=== PATIENT | male | born 1950 | race Caucasian/White ===

== ENCOUNTER 2024-03-26 07:31 | Outpatient (CLI) | payer MEDICARE, SELFPAY ==
--- OUTSIDE RECORDS SUMMARY | 2024-03-26 07:35 | XMS_ITS | Clinical Summary ---
Author Organization [employer] [facility] Address [place], [place] [address] Care Team Providers Care Record Keeper Name Role Phone Lang Almazan MD Unavailable Vlad Salazar MD Unavailable Ford Ahuja MD Unavailable Robbie Jackson OD Unavailable Kylee Cheatham Unavailable Jazmyn Hay SHERIFFS Unavailable [phone] Anitha Harmon MD Unavailable Surya Marquis MD Unavailable Mikey White MD Primary Care Provider [phone] Landy Kraus RN Unavailable Unavailable Nikhil Chaparro MD Unavailable Allergies Active Allergy Reactions Criticality Noted Date Comments Dust Mites Other - Describe In Comment Field Medium 07/19/2010 Running nose Chlorpheniramine-Phenylpr opan Other - Describe In Comment Field Medium 07/19/2010 Running nose Mold Extracts Shortness Of Breath High 07/19/2010 Penicillins Rash 01/09/2006 Medications Medication Sig Dispensed Refills Start Date End Date Status MULTIPLE VITAMIN TAB 1 tab daily ? 0 5 Active NebulizersIndicatio ns:Unspecified asthma(493.90) As directed. For home use. Length of need: 99 months. Diagnosis Asthma 1 Kit 0 2 Active Cholecalciferol, Vitamin D3, (VITAMIN D-3) 2,000 unit tablet Take 1 tablet by mouth once daily. 0 3 Active Inhalational Spacing DeviceIndications:M oderate persistent asthma without complication For home use. 1 Device 7 Active glucosamine-chondro itin, 500-400 mg, (COSAMIN DS 500/400) 500-400 mg cap 1 capsule twice a day 0 8 Active vitamin e 400 unit capsule Take 1 capsule by mouth once daily. 0 8 Active lactobacillus combination no.4 (PROBIOTIC) 3 billion cell cap Take by mouth. 0 8 Active acetaminophen SR (TYLENOL ARTHRITIS) 650 mg Extended-Release tablet Max acetaminophen dose: 4000mg in 24 hrs. 2 tablets BID arthritis 0 9 Active nebulizer accessories kitIndications:Mode rate persistent asthma without complication For home use. Length of need: 99 mo 1 Kit 6 0 Active miscellaneous medical supply (BLOOD PRESSURE CUFF) miscIndications:Ess ential hypertension As directed. Blood pressure cuff, for home monitoring, diagnosis of Essential Hypertension. Electronic upper arm cuff. 1 Each 0 Active tolterodine (DETROL LA) 2 mg Extended-Release capsuleIndications: Urinary frequency Take 1 Capsule (2 mg) by mouth once daily. 90 Capsule 3 1 Active Mucus Clearing Device deviIndications:Liliana st congestion As directed. 1 Device 1 Active tamsulosin (FLOMAX) 0.4 mg capsuleIndications: Benign non-nodular prostatic hyperplasia with lower urinary tract symptoms TAKE 1 CAPSULE(0.4 MG) BY MOUTH EVERY DAY AFTER A MEAL 90 Capsule 3 Active CPAPIndications:Obs tructive sleep apnea CPAP machine for home use at pressure 10-15 cmw, Heated Tubing, Nasal Mask, Disposable Filter, Chin Strap, Nasal Mask Cushion, Headgear, Humidifier chamber, Non-disposable Filter. Pap setting 10-15 cmw. 1 Each 11 3 Active amLODIPine (NORVASC) 10 mg tabletIndications:E ssential hypertension Take 1 Tablet (10 mg) by mouth once daily. 90 Tablet 3 3 Active atorvastatin (LIPITOR) 20 mg tabletIndications:M ixed hyperlipidemia Take 1 Tablet (20 mg) by mouth once daily. For cholesterol 90 Tablet 3 3 Active albuterol HFA (PRO-AIR; VENTOLIN; PROVENTIL) 90 mcg/actuation inhalerIndications: Moderate persistent asthma without complication INHALE 2 PUFFS BY MOUTH EVERY 4 HOURS NEEDED FOR SHORTNESS OF BREATH 18 g 1 3 Active ipratropium (ATROVENT) 0.02 % nebulizer solutionIndications :Moderate persistent asthma without complication INHALE 2.5 MLS VIA NEBULIZER FOUR TIMES DAILY, NEEDED FOR SHORTNESS OF BREATH 75 mL 1 3 Active apixaban (Eliquis) 5 mg tabletIndications:A trial fibrillation, unspecified type (HC) Take 1 Tablet (5 mg) by mouth two times daily. 180 Tablet 3 4 Active metoprolol succinate (TOPROL XL) 25 mg Sustained-Release tabletIndications:A trial fibrillation, unspecified type (HC) Take 1 Tablet (25 mg) by mouth once daily. 90 Tablet 3 4 Active albuterol 0.042% (1.25 mg/3 mL) neb solutionIndications :Moderate persistent asthma without complication Inhale 3 mL (1.25 mg) via a nebulizer every 4 hours if needed (Shortness of Breath). 90 mL 2 4 Active ezetimibe (ZETIA) 10 mg tabletIndications:M ixed hyperlipidemia Take 1 Tablet (10 mg) by mouth once daily. For Cholesterol. 90 Tablet 3 4 Active fluticasone propion-salmeteroL (Advair Diskus) 250-50 mcg/Dose diskus inhalerIndications: Moderate persistent asthma without complication Inhale 1 Puff by mouth two times daily. 180 Each 3 4 Active fosinopril sodium (MONOPRIL) 40 mg tabletIndications:E ssential hypertension Take 1 Tablet (40 mg) by mouth once daily. For blood pressure. 90 Tablet 3 4 Active montelukast (SINGULAIR) 10 mg tabletIndications:M oderate persistent asthma without complication Take 1 Tablet (10 mg) by mouth once daily. 90 Tablet 3 4 Active pantoprazole (PROTONIX) 40 mg delayed-release tabletIndications:G astroesophageal reflux disease with esophagitis without hemorrhage TAKE 1 TABLET BY MOUTH EVERY OTHER DAY 45 Tablet 3 4 Active polyethylene glycol-electrolyte (GOLYTELY) 236-22.74-6.74 -5.86 gram suspensionIndicatio ns:Polyp of colon, unspecified part of colon, unspecified type Drink 2 liters the day before colonoscopy and 2 liters 6 hours before colonoscopy appointment 4000 mL 4 Active mirabegron EXTENDED-release (MYRBETRIQ) 25 mg tablet Take 1 Tablet by mouth once daily. 4 Active CPAPIndications:Obs tructive sleep apnea CPAP (E0601) machine for home use at pressure: 12-15 , Choice of mask (A7030 or A7034) w/full face cushion (A7031) x1/mo, nasal cushion (A7032) x2/mo, or nasal pillows (A7033) x 2/mo; Length of Need: 99 months; Frequency of use: Daily 1 Each 11 4 Active albuterol (PROVENTIL; VENTOLIN) 0.042% neb solutionIndications :Moderate persistent asthma without complication Inhale 3 mL (1.25 mg) via a nebulizer every 4 hours if needed (Shortness of Breath). 90 mL 2 2 03/13/20 24 Discontinu ed(Reorder (E-cancel not sent)) fluticasone propion-salmeteroL (Advair Diskus) 250-50 mcg/Dose diskus inhalerIndications: Moderate persistent asthma without complication Inhale 1 Puff by mouth two times daily. 180 Each 3 3 03/13/20 24 Discontinu ed(Reorder (E-cancel not sent)) fosinopril sodium (MONOPRIL) 40 mg tabletIndications:E ssential hypertension Take 1 Tablet (40 mg) by mouth once daily. For blood pressure. 90 Tablet 3 3 03/13/20 24 Discontinu ed(Reorder (E-cancel not sent)) pantoprazole (PROTONIX) 40 mg delayed-release tabletIndications:G astroesophageal reflux disease with esophagitis without hemorrhage TAKE 1 TABLET BY MOUTH EVERY OTHER DAY 90 Tablet 3 3 03/13/20 24 Discontinu ed(Reorder (E-cancel not sent)) ezetimibe (ZETIA) 10 mg tabletIndications:M ixed hyperlipidemia Take 1 Tablet (10 mg) by mouth once daily. For Cholesterol. 90 Tablet 3 3 03/13/20 24 Discontinu ed(Reorder (E-cancel not sent)) montelukast (SINGULAIR) 10 mg tabletIndications:M oderate persistent asthma without complication Take 1 Tablet (10 mg) by mouth once daily. 90 Tablet 3 3 03/13/20 24 Discontinu ed(Reorder (E-cancel not sent)) Active Problems Problem Noted Date Diagnosed Date Sensorineural hearing loss (SNHL) of both ears 0 04/25/2022 Elevated fasting glucose 08/06/2021 Overview: Jul 2021: Fasting 111. Hemoglobin A1c 5.4. April 2023: Fasting glucose 111, Hemoglobin A1c 5.7. Paroxysmal atrial fibrillation 04/05/2020 Overview: New diagnosis Dec 2019 when in [place], found on [employer]. Started on Flecainide, Metoprolol and eliquis in [place]. [place] [employer] Dr. Cheatham did holter monitor and echocardiogram March 2020. s/p PVI 04/26/[address] Marquis, acutely successful Renal cyst, congenital, left 01/27/2019 ASHD (arteriosclerotic heart disease) 06/27/2018 Left renal mass 02/18/2018 Overview: August 2020: Urology appointment Dr. Eason . 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 Referred to [facility] for consult. Dr. Ahuja recommended repeat colonoscopy 2021. Colonoscopy 07/2022 multiple polyps, repeat in 2 years, PEG 8L Nodular prostate without urinary obstruction Overview: Seen by urology. Had biopsies, all were negative for maligancy August 2020: Elevated PSA 4.94. Dr. Jin recommended repeat PSA February 2021. Plantar fascial fibromatosis 03/18/2008 Moderate persistent asthma without complication 07/17/2007 Overview: Diagnosis asthma as an adult. Asthma action plan updated 10/04/2012 Bronchitis in [place] Oct 2018 to Nov 2018, placed on azithromycin. Nonspecific elevation of lev els of transaminase or lactic acid dehydrogenase (LDH) 08/09/2006 Fatty liver 08/09/2006 Anxiety 10/25/2004 Tinnitus 12/18/2002 ESOPHAGUS - REFLUX 06/20/2001 Umbilical hernia without obstruction and without gangrene 08/30/2000 HYPERLIPIDEMIA 08/30/2000 Premature beats 08/30/2000 Primary hypertension 05/16/2000 Resolved Problems Problem Noted Date Diagnosed Date Resolved Date Atrial flutter 04/26/2021 04/26/2021 Diastolic heart failure 04/06/2020 05/2 05/2022 Thoracic aortic ectasia 04/06/2020 06/0 03/2023 Severe obesity (BMI 35.0-39.9) 06/15/2017 04/09/2023 Obstructive sleep apnea 02/16/201405/06 Overview: HEMA 05/2008, AHI- 13 Chest pain, unspecified 03/28/201101/03 Obesity, unspecified 03/18/2008 017 Overview: i Routine general medical exam ination at a health care facility 03/14/2006 05/29/2006 Overview: last colonoscopy- 2003 SLEEP APNEA - UNSPECIFIED 04/22/2002 Overview: CPAP TRIGGER FINGER 11/18/2001 09/24/2015 Encounters Date Type Department Care Team Description 03/25/2024 9:00 AM CDT Telemedicine [facility] [address] [place] [address] Jeaneth Shultz, SHERIFFS Sleep Follow-up; Telehealth 03/24/2024 2:45 PM CDT Ancillary Procedure [facility] [address] [place] [address] Arrived 03/24/2024 Orders Only [facility] [address] [place] [address] Mikey White MD Outside Order 03/24/2024 Travel 03/22/2024 Travel 03/19/2024 9:30 AM CDT Patient Out[place] [facility] [address] [place] [address] [employer] Gates Rn Suite Focused Care Management (HTN, Obesity) 03/19/2024 Travel 03/18/2024 Transcribe Orders [facility] [address] [place] [address] Nikhil Chaparro MD 03/13/2024 1:30 PM CDT Office Visit [facility] [address] [place] [address] Wilma Yin MD Derm Problem 03/13/2024 8:15 AM CDT Office Visit [facility] [address] [place] [address] Mikey White MD Medication Management (Follow-up Medications and review Biopsy results from 08/22/2023 (shave biopsy from back)); Immunization/Injec tion; Immunization/Injec tion (COVID-19 vaccine) 03/13/2024 8:00 AM CDT Orders Only [facility] [address] [place] [address] Lab, [place] Outside Order (Ordered by Nikhil Chaparro) 03/13/2024 Telephone [facility] [address] [place] [address] Ford Ahuja MD Pre Procedure 03/13/2024 Travel 03/10/2024 8:30 AM CDT Office Visit [facility] [address] [place] [address] Nikki Abraham AuD Hearing Aid (ROJAS check) 03/10/2024 Travel 03/05/2024 10:00 AM CDT Office Visit [facility] [address] [place] [phone] Kylee Cheatham MBBS Follow Up (Annual ) 03/05/2024 Travel from Last 3 Months Immunizations Name Administration Dates Next Due AMB Influenza, IIV3 (Age >=3 years) Preserve Free (Flu Clinic Only) 09/02/2013 COVID-19 Vaccine Spikevax (M oderna 50mcg/0.5mL) 12YO+ [id number] Formula PF 03/13/2024,08/22/2023 COVID-19 vaccine (Moderna 100mcg/0.5mL) PF, MDV 08/26/2021,01/28/2021,12/31/2020 COVID-19 vaccine (Moderna 50 mcg/0.5mL) 12YO+ BIVALENT PF, MDV 08/10/2022 COVID-19 vaccine (Moderna Romero ginette 50mcg/0.25mL) PF, MDV 03/14/2022 Covid-19 Vaccine (Unspecified) 08/10/2022 DTaP 04/10/2006 Hepatitis A (Adult) 10/15/2009,03/24/2009 Influenza Virus, Unspecified 08/10/2022 Influenza, High-dose Inactivated 07/28/2016,05/2015,09/08/2014 Influenza, IIV3 (Age >=3 years) 09/14/2012,08/28 Influenza, Inactivated AIIV4 (Age 65+ Years) Preserv Free 08/13/2023,08/10/2022,07/18/2021,07/14 Influenza, Inactivated IIV3 (Age 65+ Years) Preserv Free 08/08/2019,08/15/2018,08/10/2017 Pneumococcal Poly,23-Valent (Pneumovax) 01/21/2013,11/05/2000 Pneumococcal conj 13-Valent (Prevnar 13) 03/17/2015,11/05/2000 RSV, Bivalent Vaccine Recons tituted (Abrysvo 120MCG/0.5mL) 07/31/2023 Tdap 03/27/2014 Zoster (Shingrix-RZV, recombinant) 07/05/2019, Zoster (Zostavax-ZVL, live) 03/24/2009 Family History Medical History Relation Name Comments Hypertension Brother Stroke Brother Atrial fibrillation Father Cancer-prostate Father Diabetes Father Stroke Father Heart Disease Maternal Grandfather Heart Disease Mother Hypertension Mother Other Mother cardiomyopathy Genetic Other heart disease-b oth sets of grandparents, mother/heart disease-both sets of grandparents, mother ~No family hx of anesthetic complications, bleeding disorders or family or personal hx of malignant hyperthermia. Heart Disease Paternal Grandfather Heart Disease Sister 1 cardiomyopathy Cancer-ovarian Sister 2 Cancer-breast Sister 3 Relation Name Status Comments Brother Father Alive Maternal Grandfather Maternal Grandmother Mother Other Paternal Grandfather Paternal Grandmother Sister 1 Sister 2 Sister 3 Social History Tobacco Use Types Packs/Day Years Used Date Smoking Tobacco: Never Smokeless Tobacco: Never Tobacco Cessation:Counseling Given: Yes Alcohol Use Standard Drinks/Week Comments No 0 (1 standard drink = 0.6 oz pur e alcohol) PHQ-2 Answer Date Recorded PHQ-2 TOTAL SCORE 0 08/13/2023 Social Connections Answer Date Recorded Frequency of Communication with Friends and Fami ly 0 08/22/2023 Financial Resource Strain Answer Date R ecorded Difficulty of Paying Living Expenses 3 08/22/2023 Difficulty of Paying Living Expenses Not on file 08/22/2023 Food Insecurity Answer Date Recorded Worried About Running Out of Food in the Last Ye ar 1 08/22/2023 Transportation Needs Answer Date Record ed Lack of Transportation (Medical) 1 08/22/2023 Housing Stability Answer Date Recorded Unable to Pay for Housing in the Last Year 1 08/22/2023 Sex and Gender Information Value Date Recorded Sex Assigned at Not on file Gender Identity Not on file Sexual Orientation Not on file Obstetrics History Last Filed Vital Signs Vital Sign Reading Time Taken Comments Blood Pressure 127/72 03/13/2024 8:23 AM CDT Pulse 70 03/13/2024 8:23 AM CDT Temperature 36.4 ??C (97.6 ??F) 08/13/2023 7:55 AM CD T Respiratory Rate 18 07/23/2023 9:16 AM CDT Oxygen Saturation 96% 03/13/2024 8:23 AM CDT Inhaled Oxygen Concentration - - Weight 116.7 kg (257 lb 4.8 oz) 03/19/2024 9:40 AM CDT Height 179.8 cm (5' 10.79) 08/13/2023 7:55 AM C DT Body Mass Index 36.1 08/13/2023 7:55 AM CDT Plan of Treatment Upcoming Encounters Date Type Department Care Team (Late st Contact Info) Description 04/14/2024 1:30 PM CDT Appointment [facility] [address], [address] [address] 04/23/2024 9:30 AM CDT Patient Outreach [facility] [address] [place] [address] [address]n [address] 04/30/2024 10:15 AM CDT Office Visit [facility] [address] [place] [address] Juan Ramon Saxena DPM [address] [place] [address] 07/31/2024 7:30 AM CDT Office Visit [facility] [address] [place] [address] Ford Ahuja MD [address] [place] [address] 08/05/2024 9:00 AM CDT Office Visit [facility] [address] [place] [address] Artis Urrutia, AuD [address] [facility] [place] [address] 08/11/2024 7:00 AM CDT Office Visit [facility] [address] [place] [address] Mikey White MD [address] [place] [address] Health Maintenance Due Date Last Done Comments Tetanus booster 03/27/2024 03/27/2014, 03/06 (Completed outside of [facility]) Influenza for age 65+ 07/06/2024 08/13/2023 , 08/10/2022, 08/10/2022, Additional history exists BMI (ht and wt on same day) for age 18+ 08/13/2024 08/13/2023, 04/09/2023, 03/26/2023, Additional history exists Medicare Wellness for age 65+ 08/13/2024, 08/10/2022, 08/04/2021, Additional history exists Depression screening for age 12+ 08/16/2024 08/16/2023, 08/13/2023, 08/11/2023, Additional history exists Hepatitis C screening for ag e 18-79 Completed 04/05/2006, 07/31/2002 Tdap Completed 03/27/2014 Pneumococcal series for age 65+ Completed 03/17/2015, 01/21/2013, 11/05/2000, Additional history exists Zoster (shingles) series for age 50+ Completed 07/05/2019, 05/06/2019, 03/24/2009 COVID-19 vaccine series Completed 03/13/20 24, 08/22/2023, 08/10/2022, Additional history exists Procedures Procedure Name Priority Date/Time Associated Diagnosis Comments US RENAL AND BLADDER COMPLETE Routine 03/24/2024 2:56 PM CDT Abnormal radiologic findings on diagnostic imaging of renal pelvis, ureter, or bladder LIPID PANEL W REFLEX MEASURED LDL Routine 03/13/2024 9:44 AM CDT HYPERLIPIDEMIA BASIC METABOLIC PANEL Routine 03/13/2024 9:44 AM CDT Essential hypertension HEMOGLOBIN A1C SCREENING Routine 03/13/2024 9:44 AM CDT Screening for diabetes mellitus PSA TOTAL (DIAGNOSTIC) Routine 03/13/2024 7:50 AM CDT Elevated prostate specific antigen (PSA) ANTI HCV Routine 04/05/2006 3:49 PM CDT Elevated Levels Of Transaminase Or Ldh from Last 3 Months or Most Recently Relevant to Health Maintenance Results * US RENAL AND BLADDER COMPLETE (03/24/2024 2:56 PM CDT) Anatomical Region Laterality Modality Abdomen, AORTA, KIDNEYS Ultrasou nd 03/24/2024 2:56 PM CDT Impressions 03/24/2024 3:25 PM CDT 1. ??Large left renal cysts, grossly stable when compared with comparison imaging Narrative 03/24/2024 3:25 PM CDT For Patients: As a result of the Century Cures Act, medical imaging exams and procedure reports are released immediately into your electronic medical record. You may view this report before your referring provider. If you have questions, please contact your health care provider. EXAM: US RENAL AND BLADDER COMPLETE LOCATION: [facility] DATE: 03/24/2024 INDICATION: Abnormal Radiologic Findings On Diagnostic Imaging Of Renal Pelvis, Ureter, Or Bladder COMPARISON: 03/07/2018, 02/21/2018 TECHNIQUE: Routine Bilateral Renal and Bladder Ultrasound. FINDINGS: RIGHT KIDNEY: 11.7 x 6.1 x 5.8 cm. Normal without hydronephrosis or masses. LEFT KIDNEY: 14.1 x 9.6 x 9.6 cm. Normal without hydronephrosis or masses. Large cysts are noted the largest of which measures up to 10.8 x 9.7 x 5.5 cm. BLADDER: Normal. Procedure Note Armando Fernández MD - 03/24/2024 For Patients: As a result of the Cures Act, medical imagingexams and procedure reports are released immediately into your electronicmedical record. You may view this report before your referring provider.If you have questions, please contact your health care provider. EXAM: US RENAL AND BLADDER COMPLETE LOCATION: [facility] DATE: 03/24/2024 INDICATION: Abnormal Radiologic Findings On Diagnostic Imaging Of RenalPelvis, Ureter, Or Bladder COMPARISON: 03/07/2018, 02/21/2018 TECHNIQUE: Routine Bilateral Renal and Bladder Ultrasound. FINDINGS: RIGHT KIDNEY: 11.7 x 6.1 x 5.8 cm. Normal without hydronephrosis ormasses. LEFT KIDNEY: 14.1 x 9.6 x 9.6 cm. Normal without hydronephrosis or masses.Large cysts are noted the largest of which measures up to 10.8 x 9.7 x 5.5cm. BLADDER: Normal. IMPRESSION: 1. Large left renal cysts, grossly stable when compared with comparisonimaging Nikhil Chaparro MD US * HEMOGLOBIN A1C SCREENING (03/13/2024 9:44 AM CDT) HEMOGLOBIN A1C SCREENING 5.3 <=6.4 % 03/13/2024 5:19 PM CDT [facility] Blood BLOOD SPECIMEN / Unknown Venipuncture / Unknown 03/13/2024 9:44 AM CDT 03/13/2024 9:46 AM CDT Narrative [facility] - 03/13/2024 5:19 PM CDT ? (<5.7%) ?Normal ? (5.7% to 6.4%) ? Indicates prediabetes ? (>=6.5%) ? Confirms diabetes Falsely low levels may be seen with: Recent Transfusion, Recent Significant Blood Loss, Hemolytic Diseases, or Falsely elevated levels may be seen with: Untreated Anemias, Splenectomy Mikey Whtie MD CHEMISTRY [facility] [address] [place] [id number], * (ABNORMAL) LIPID PANEL W REFLEX MEASURED LDL (03/13/2024 9:44 AM CDT) Pathologist [facility] CHOLESTEROL,TOTAL 140 100 - 199 mg/dL 03/13/2024 4:41 PM CDT [facility] Comment: Cholesterol, Total Reference Ranges Desirable <200 mg/dL Borderline 200-239 mg/dL High >=240 mg/dL TRIGLYCERIDES 126 <150 mg/dL 03/13/2024 4:41 PM CDT [facility] HDL CHOLESTEROL 39(L) >40 mg/dL 4:41 PM CDT [facility] NON-HDL CHOLESTEROL 101 <145 mg/dl 03/13/2024 4:41 PM CDT [facility] CHOL/HDL RATIO 3.59 <4.50 03/13/2024 4:41 PM CDT [facility] LDL CHOLESTEROL 76 <=130 mg/dL 03/13/2024 4:41 PM CDT [facility] VLDL CHOLESTEROL 25 <=30 mg/dL 03/13/2024 4:41 PM CDT [facility] PROVIDER ORDERED STATUS RANDOM 03/13/2024 4:41 PM CDT [facility] Blood BLOOD SPECIMEN / Unknown Venipuncture / Unknown 03/13/2024 9:44 AM CDT 03/13/2024 9:46 AM CDT Mikey White MD CHEMISTRY [facility] [address] [place] [address], * (ABNORMAL) BASIC METABOLIC PANEL (03/13/2024 9:44 AM CDT) SODIUM 143 136 - 145 mmol/L 03/13/2024 4:41 PM CDT [facility] POTASSIUM 4.7 3.5 - 5.1 mmol/L 03/13/2024 4:41 PM T [facility] CHLORIDE 108(H) 98 - 107 mmol/L 03/13/2024 4:41 PM T [facility] CO2,TOTAL 22 22 - 29 mmol/L 03/13/2024 4:41 PM T [facility] ANION GAP 13 5 - 18 03/13/2024 4:41 PM T [facility] GLUCOSE 112(H) 70 - 99 mg/dL 03/13/2024 4:41 PM T [facility] CALCIUM 9.5 8.8 - 10.2 mg/dL 03/13/2024 4:41 PM T [facility] BUN 19 8 - 23 mg/dL 03/13/2024 4:41 PM [facility] CREATININE 0.99 0.70 - 1.20 mg/dL 03/13/2024 4:41 PM [facility] BUN/CREAT RATIO 19 10 - 20 4:41 PM [facility] eGFR 79(L) >90 mL/min/1.7 3m2 03/13/2024 4:41 PM [facility] Comment:As of 2022, eG FR is calculated by the CKD-EPI creatinine equation without race adjustment. ??eGFR can be influenced by muscle mass, exercise, and diet. ??The reported eGFR is an estimation only and is only applicable if the renal function is stable. Blood BLOOD SPECIMEN / Unknown Venipuncture / Unknown 03/13/2024 9:44 AM CDT 03/13/2024 9:46 AM CDT Mikey White MD CHEMISTRY Performing Organization Address City/[facility]/ZIP Co de Phone Number [facility] [address] [place] [address], * (ABNORMAL) PSA TOTAL (DIAGNOSTIC) (03/13/2024 7:50 AM CDT) PSA TOTAL (DIAGNOSTIC) 5.49(H) <4.00 ng/mL 03/13/2024 2:29 PM CDT [facility] Blood BLOOD SPECIMEN / Unknown Venipuncture / Unknown 03/13/2024 7:50 AM CDT 03/13/2024 7:50 AM CDT Narrative [facility] - 03/13/2024 2:29 PM CDT The test method changed on 05/01/2023. If this test has been used for serial monitoring, rebaselining is recommended. Rebaselining consists of 2 measurements, collected 3-6 weeks apart. The Carl Elecsys total PSA assay is an electrochemiluminescence immunoassay ECLIA performed on the Carl Bartolome e immunoassay analyzers. Values obtained with different assay methods may be different and cannot be used interchangeably. Mikey White MD CHEMISTRY Performing Organization Address [facility] Co de Phone Number [facility] [address] [place] [address], * ANTI HCV (04/05/2006 3:49 PM CDT) ANTI HCV Non-reactiv e [facility] Blood specimen (specimen) BLOOD SPECIMEN / Unknown 04/05/2006 3:49 PM CDT 04/05/2006 3:46 PM CDT Narrative [facility] - 04/10/2006 1:42 PM CDT Testing Performed By [place], [place] Ford Ahuja MD SEND OUTS [facility] [address] [place] [address] from Last 3 Months or Most Recently Relevant to Health Maintenance Advance Directives Documents on File Type Date Recorded Patient Mercantile Agent Expl anation Healthcare Directive 10/03/2016 10:27 AM [facility] * Full Code (Latest Code Status on File) Date Activated Date Inactivated Comments 04/26/2021 12:58 PM 04/27/2021 12:28 PM Question Answer Comments Code Status Discussion: Not Discussed * Full Code Date Activated Date Inactivated Comments 05/29/2018 10:14 AM 05/29/2018 3:26 PM Care Teams Record Keeper Relationship Specialty Start Date End Date Mikey White MD [address] [place] [address] PCP - General Family Practice 03/08/23 Lang Almazan MD Sleep Medicine 08/25/11 Vlad Salazar MD [address] [facility] [address] [place] [address] Otolaryngology ENT 08/25/11 Ford Ahuja MD [address] [facility] [address] [place] [address] Gastroenterology 01/21/13 [place] [address] [place] [address] Ophthalmology Surgery 01/21/13 Kylee Cheatham MBBS [address] [place] [address] Consulting Physician Cardiovascular Disease 05/17/18 Jazmyn Hay NP [address] [place] [address] Nurse Practitioner Cardiology - Electrophysiology 04/08/21 Anitha Harmon MD [address] [place] [id number] Cardiology Cardiovascular Disease 06/01/21 Surya Marquis MD [address] [place] [address] Cardiovascular Surgeon Cardiovascular Disease 07/20/21 Landy Kraus, psychometric examiner RN Care Management [facility] 03/16/23 [place] [address] [place] [address] Urology Surgery - Urology 08/13/23 Aby Gramajo MD [address] [place] [address] Family Practice Family Practice 09/05/21 Michael Magallon MD Orthopedics Surgery - Orthopedics 07/20/21 Belen Larios, PT [address] [place] [address] Physical Therapist Physical Therapist 07/20/21
--- OUTSIDE RECORDS SUMMARY | 2024-03-26 07:35 | XMS_ITS | Continuity of Care Document ---
Author Organization [facility] Address [address] [place] [address] Phone Care Team Providers Care Supervisor Frame Sample And Pattern Name Role Phone Jarek Donnelly MD Unavailable Unavailable Allergies, Adverse Reactions, Alerts Substance Reaction Status Criticality Penicillins Active No Information Medications Medication Instructions Dosage Effective Dates (start - stop) Status Comments FLECAINIDE 50MG TABLETS TAKE 1 TABLET BY MOUTH EVERY 12 HOURS - Active metoprolol succinate ER 50 mg tablet,extended release 24 hr take 1 tablet by oral route every day 50 MG - Active Eliquis 5 mg tablet take 1 tablet by oral route 2 times every day 5 MG - Active Advair Diskus 250 mcg-50 mcg/dose powder for inhalation inhale 1 puff by inhalation route 2 times every day in the morning and evening approximately 12 hours apart 1.00 puff - Active montelukast 10 mg tablet take 1 tablet by oral route every day in the evening 10 MG - Active Glucosamine Chondroitin Maximum Strength 500 mg-400 mg capsule - Active ipratropium-albuter ol 0.5 mg-3 mg(2.5 mg base)/3 mL nebulization soln inhale 3 milliliter by nebulization route 4 times every day 3.00 milliliter - Active ProAir HFA 90 mcg/actuation aerosol inhaler inhale 2 puff by inhalation route every 4 - 6 hours as needed - Active tamsulosin 0.4 mg capsule take 1 capsule by oral route every day 1/2 hour following the same meal each day 0.4 MG - Active tolterodine 2 mg tablet take 1 tablet by oral route 2 times every day 2 MG - Active pantoprazole 40 mg tablet,delayed release take 1 tablet by oral route every day 40 MG - Active fosinopril 40 mg tablet take 1 tablet by oral route every day 40 MG - Active amlodipine 10 mg tablet take 1 tablet by oral route every day 10 MG - Active vitamin E 400 unit capsule - Active atorvastatin 20 mg tablet take 1 tablet by oral route every day 20 MG - Active aspirin 81 mg tablet,delayed release take 1 tablet by oral route every day 81 MG - Active Vitamin D3 25 mcg (1,000 unit) capsule - Active Probiotic 10 billion cell capsule - Active Zetia 10 mg tablet take 1 tablet by oral route every day 10 MG - Active Procedures Procedure Date OP Estab Pt Level 4 Echocardiography, transthoracic, real-ti me with im Office/OP Visit New Patient Level 4 Electrocardiogram, routine ECG with at [address] Advance Directives Directive Yes / No Effective Date File Name No Information Encounters Encounter Description Practice Location Reason(s) For Visit Diagnoses Date Provider Providers Copied on Encounter [facility], [address], [place], [place], [id number], tel:[phone] [facility] [place] No Information 1 Andrzej Tilley. [address], [place], [place], [id number] , [place]. tel:[phone] [facility], [address], [place], [place], [id number], [place] tel:[phone] [facility] [place] No Information 0 Faustino phillips. [address] [facility], [place], [place], [id number] , . tel:[phone] OP Estab Pt Level 4 [facility], [address], [place], [place], [id number], tel:[phone] [facility] [place] follow up (chief complaint)Ca rdiovascular Review (chief complaint) Paroxysmal atrial fibrillation Acute on chronic diastolic congestive heart failureCAD in [place] artery[place]ent ial hypertension Dyslipidemia Jan- 0 Devadoss Ramprakas h. [address] [place], [place], [id number] , [place]. tel:[phone] Referring Provider: Anitha Harmon, [address], [place], [place], [id number]. tel:[phone] [facility], [address], [place], [place], [id number], tel:[phone] [facility] [place] Paroxysmal atrial fibrillation 0 [employer] Tilley. [address] , [place], [place], [id number] , [place]. tel:[phone] Referring Provider: Anitha Harmon, [address], [place], [place], [id number]. tel:[phone] Office/OP Visit New Patient Level 4 [facility], [address], [place], [place], [id number], tel:[phone] [facility] [place] Introduction (chief complaint)Ca rdiovascular Review (chief complaint) Paroxysmal atrial fibrillation Acute on chronic diastolic congestive heart failureEssen tial hypertension Dyslipidemia 0 Devadoss Hilarys h. [address], [place], [place], [id number] , [place]. tel:[phone] Referring Provider: Anitha Harmon, [address], [place], [place], [id number]. tel:[phone] Family History Family Member Type Diagnosis Age At Onset Mother Problem (finding) Congestive heart failur e Sister Problem (finding) cardiomyopathy Father Problem (finding) Cancer, prostate Father Problem (finding) a-fib Mother Problem (finding) Hypertension Father Problem (finding) Stroke Mother Problem (finding) Cardiomyopathy Sister Problem (finding) Hypertension Payers Payer name Insurance type Covered green party ID Tiffanie paez(s) Medicare Claims Admin AG [id number] [facility] [id number] Social History Type Description Quantity Date Captured Comments Alcohol Use Details Unknown Caffeine Use Details Unknown Tobacco Use Status No Information Smoking Status No Information Sex Male Chief Complaint And Reason For Visit No Information History Of Present Illness Encounter Date Complaint History Of Prese nt Illness Cardiovascular Review He has had no chest discomfort suggestive of ischemia. The patient denies orthopnea, PND, TALAMANTES, or edema. Mr. Ribeiro has not had palpitations, syncope or near syncope. He denies claudication. There is no discoloration or ulceration of the lower extremities. He has had no TIA or stroke-like symptoms. The patient has no symptoms attributable to valvular heart disease. follow up Mr. Ribeiro is here for follow up of PAF, mild CAD, CHF, HTN and DLP. Last seen on 12/26/2019 - initial presentation with new diagnosis of A.fib - recorded by his Apple watch. He was noticed to have minimal LE edema. He was initiated on diuretics and planned to have TTE for LV function assessment. He was started on BB and anticoagulation during the initial presentation to ER. He is presenting today for follow up as scheduled after the labs and TTE.His leg swelling improved. His weight has been stable around 250 lbs. Continues to have episodes of A.Fib recorded by his Apple watch - currently in persistent A.Fib since yesterday. Complaint with medications as suggested. Reports feeling tired intermittently. No chest pain, shortness of breath or palpitations. Introduction Mr. Ribeiro is here from [place]. 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 Cheatham. Initially saw him for pre-operative evaluation prior to planned shoulder surgery because of abnormal EKG. Had TTE and Cardiac CTA. Cardiac CTA - was abnormal - triggered coronary angiogram which did not show any obstructive disease. He was advised medical management and periodic follow up. He noticed abnormal rhythm on his apple watch on 12/23/2019. Presented to the hospital - confirmed to be in A.Fib. As he was asymptomatic he was discharged home after being initiated on BB and anticoagulation with Eliquis given CHADS VASc score of 2. Per patient after 24 hours he spontaneously converted to sinus rhythm as reported by his apple watch. Continues to deny any symptoms. Other risk factors : HTN, HEMA and DLP.Lifelong non-smoker. No alcohol.Family history of A.Fib in father. Cardiomyopathy - in mother and sister. Cardiovascular Review He has had no chest discomfort suggestive of ischemia. The patient denies orthopnea, PND, TALAMANTES, or edema. Mr. Ribeiro has not had palpitations, syncope or near syncope. He denies claudication. There is no discoloration or ulceration of the lower extremities. He has had no TIA or stroke-like symptoms. The patient has no symptoms attributable to valvular heart disease. Instructions Date Instruction Additional Infor barbie No Information Assessments Type Assessment Date No Information
--- OUTSIDE RECORDS SUMMARY | 2024-03-26 07:35 | XMS_ITS | Data Portability ---
Author Organization [facility], [facility] Address [address] [place] [address] Care Team Providers Care [employer] Worker Name Role Phone ENMA ARCEO Primary Care Provider [phone] Assessment Encounter Date Assessment Date Assessment LastModified by Organization Details LastModified Time 08/15/2022 08/15/2022 72 year old male with an elevated prostate specific antigen. Not available 08/11/2022 08:24:17 03/13/2023 03/13/2023 73 year old male with a history of an elevated prostate specific antigen and benign prostatic hyperplasia with lower urinary tract symptoms. Not available 03/13/2023 09:06:27 03/18/2024 03/18/2024 74 year old male with a history of an elevated prostate specific antigen and benign prostatic hyperplasia with lower urinary tract symptoms. Not available 03/18/2024 13:55:59 Plan of Treatment Reminders Order Date Submit Date Provider Last Modified By Organization Details Last Modified Time Details Appointments None recorded. Lab PSA, total, serum or plasma 2023 024 [facility], [address], [place], [address], 16:40:29 urinalysis , dipstick 2023 024 [facility], [address] [facility], [place], [address], 05/14/202 4 17:36:36 urinalysis , microscopi c 2023 024 [facility], [address], [address], [place], [address], 4 14:07:35 PSA, total, serum or plasma [address] [facility], [address] [place], [address], 4 09:25:27 Referral None recorded. Procedures None recorded. Surgeries None recorded. Imaging US, kidney 2023 024 [facility], [address], [place], [address], 4 16:31:02 Medication Orders tamsulosin 0.4 mg capsule 2023 024 [id number], [address] [place], [place], [id number], 4 14:07:43 mirabegron ER 25 mg tablet,ext ended release 24 hr 2023 024 [id number], [address] [place], [place], [id number], 4 14:07:42 tamsulosin 0.4 mg capsule 2022 023 [id number], [address] [place], [place], [id number], 4 18:58:24 tolterodin e ER 2 mg capsule,ex tended release 24 hr 2022 023 [id number], [address] [place], [place], [id number], 18:58:25 Patient TargetsNo targets recorded. Patient Instructions Encounter Date Encounter Id Patient Instructions Last Modified By Organization Details Last Modified Time 03/18/2024 [id number] Elevated prostat e specific antigen: His prostate specific antigen remains stable. Examination is unchanged. We will repeat in 1 year. Benign prostatic hyperplasia with lower urinary tract symptoms: Stable and he is satisfied. Continue tamsulosin 0.4 mg daily. Given worsening issues with memory and mental fogginess we discussed transitioning to a beta-3 agonist. We discussed mirabegron and the risks and benefits We will stop tolterodine and start mirabegron ER 25 mg daily. Renal lesion? I am unsure based on history what he may be referring to so we will check an ultrasound. [place] Not available 03/18/2024 14:11:34 03/13/2023 [id number] Elevated prostat e specific antigen: His prostate specific antigen remains stable. Examination is unchanged. We will repeat in 1 year. Benign prostatic hyperplasia with lower urinary tract symptoms: Stable and he is satisfied. Continue tamsulosin 0.4 mg daily and tolterodine ER 2 mg daily. Not available 03/13/2023 09:07:16 08/15/2022 [id number] Elevated prostat e specific antigen: Overall his prostate specific antigen is relatively stable and much lower than at the time of prior biopsy. His examination is not worrisome. I recommend we repeat his prostate specific antigen in 1 year and exam at that time. [place] Not available 08/15/2022 09:23:04 Reason for Referral None Reported. Results Created Date Observation Date Name Description Value Unit Range Abnormal Flag LastModifiedBy Organization Detail LastModifiedTime 03/31/2003/31/2022 PSA, serum or plasm a PSA 4.50 abnormal Not Available Not Available 02/2022 08:39:16 03/13/20 24 03/13/2024 PSA, total , serum or plasm a PSA 5.49 abnormal Not Available Not Available 08/2024 14:39:54 03/18/20 24 03/18/2024 UA WITHO UT MICRO - CS URISC AN blood - uriscan NEGATI VE negati ve Not Available [facility] [address], [place], [address], 03/18/2024 17:36:35 03/18/20 24 03/18/2024 UA WITHO UT MICRO - CS URISC AN bilirubin - uriscan NEGATI VE mg/dL negati ve Not Available [facility] [address] [facility] [address], [place], [address], 03/18/2024 17:36:35 03/18/20 24 03/18/2024 UA WITHO UT MICRO - CS URISC AN urobilinogen - uriscan NORMAL mg/dL normal Not Available [facility] [address] [facility] [address], [place], [address], 03/18/2024 17:36:35 03/18/20 24 03/18/2024 UA WITHO UT MICRO - CS URISC AN ketones - uriscan NEGATI VE mg/dL negati ve Not Available [facility] [address] [facility] [address], [place], [address], 03/18/2024 17:36:35 03/18/20 24 03/18/2024 UA WITHO UT MICRO - CS URISC AN protein - uriscan NEGATI VE mg/dL negati ve Not Available [facility] [address] [facility] [address], [place], [address], 03/18/2024 17:36:35 03/18/20 24 03/18/2024 UA WITHO UT MICRO - CS URISC AN nitrites - uriscan NEGATI VE negati ve Not Available [facility] [address] [facility] [address], [place], [address], 03/18/2024 17:36:35 03/18/20 24 03/18/2024 UA WITHO UT MICRO - CS URISC AN glucose - uriscan NEGATI VE mg/dL negati ve Not Available [facility] [address] [facility] [address], [place], [address], 03/18/2024 17:36:35 03/18/20 24 03/18/2024 UA WITHO UT MICRO - CS URISC AN pH - uriscan 5.00 5.00-9 .00 Not Available [facility] [address] [facility] [address], [place], [address], 03/18/2024 17:36:35 03/18/20 24 03/18/2024 UA WITHO UT MICRO - CS URISC AN sp. gravity - uriscan <=1.01 1.01-1 .03 Not Available [facility] [address] [facility] [address], [place], [address], 03/18/2024 17:36:35 03/18/20 24 03/18/2024 UA WITHO UT MICRO - CS URISC AN leukocytes - uriscan NEGATI VE negati ve Not Available [facility] [address] [facility] [address], [place], [address], 03/18/2024 17:36:35 03/18/20 24 03/18/2024 UA WITHO UT MICRO - CS URISC AN color - uriscan YELLOW lt. yellow ;yello w Not Available [facility] [address] [facility] [address], [place], [address], 03/18/2024 17:36:35 03/18/20 24 03/18/2024 UA WITHO UT MICRO - CS URISC AN clarity - uriscan CLEAR clear Not Available [facility] [address] [facility] [address], [place], [address], 03/18/2024 17:36:35 03/18/20 24 03/18/2024 UA WITHO UT MICRO - CS URISC AN total urine volume (mL) 60 /mL Not Available [facility] [address] [facility] [address], [place], [address], 03/18/2024 17:36:35 03/24/20 24 03/24/2024 , serena y Joanne acharya ation record ed. [facility] [address], [place], [address], 03/24/2024 16:38:00 Result Notes None recorded. Problems Name Status Onset Date Resolution Date Notes Provider Name and Address Organization Details Recorded Time Prostate specific antigen above reference range Active 03/07/20 24 Holden Meath null, [facility] 03/07/2024 09:08:00 Lower urinary tract symptoms due to benign prostatic hypertrophy Active 03/07/20 24 Holden Meath null, [facility] 03/07/2024 09:08:05 Sensorineural hearing loss of bilateral ears Active 03/07/20 24 Holden Meath null, [facility] 03/07/2024 09:10:26 Impaired fasting glycemia Active 03/07/20 24 Holden Meath null, [facility] 03/07/2024 09:10:36 Atrial fibrillation Active 03/07/20 24 Holden Meath null, [facility] 03/07/2024 09:10:45 Cyst of kidney Active 03/07/20 24 Holden Meath null, [facility] 03/07/2024 09:10:54 Coronary atherosclerosis Active 03/07/20 24 Holden Meath null, [facility] 03/07/2024 09:11:05 Obstructive sleep apnea syndrome Active 03/07/20 24 Holden Meath null, [facility] 03/07/2024 09:11:17 Polyp of colon Active 03/07/20 24 Holden Meath null, [facility] 03/07/2024 09:11:25 Asthma Active 03/07/20 24 Holden Meath null, [facility] 03/07/2024 09:11:36 Anxiety Active 03/07/20 24 Holden Meath null, [facility] 03/07/2024 09:11:48 Acid reflux Active 03/07/20 24 Holden Meath null, [facility] 03/07/2024 09:12:00 Hyperlipidemia Active 03/07/20 24 Holden Meath null, [facility] 03/07/2024 09:12:07 Hypertensive disorder Active 03/07/20 24 Holden Meath null, [facility] 03/07/2024 09:12:16 Problem Notes None recorded. Procedures Surgical History Date Name Laterality Status Provider Name and Address Organization Details Recorded Time 03/18/20 24 COMPLEX VISIT completed Nikhil Chaparro MD [address] [facility], [place], [address], [facility] 03/18/2024 14:10:25 03/18/20 24 Past Data Reviewed completed Nikhil Chaparro MD [address] [facility], [place], [address], [facility] 03/18/2024 13:55:41 03/18/20 24 Bladder Scan completed Holden alvarado [facility] 03/18/2024 14:00:59 08/15/20 22 Bladder Scan completed Yaneth alvarado [facility] 08/15/2022 09:13:39 08/01/20 22 Diagnostic colonoscopy completed Not Available Health Note 08/11/2022 12:05:56 10/05/20 15 Us urine capacity measure completed Not Available Health Note 08/11/2022 12:05:56 03/08/20 07 Biopsy of prostate completed Not Available Health Note 08/11/2022 12:05:56 11/05/19 01 Prp i/ivanna init reduc >5 yr completed Not Available Health Note 08/11/2022 12:05:56 11/05/18 87 Remove spine lamina 1/2 lmbr completed Not Available Health Note 08/11/2022 12:05:56 11/05/18 86 Removal of sperm duct(s) completed Not Available Health Note 08/11/2022 12:05:56 11/05/18 73 Appendectomy add-on completed Not Available Health Note 08/11/2022 12:05:56 04/05/19 48 Reconstruct cleft palate completed Not Available Health Note 08/11/2022 12:05:56 Insert epicard eltrd open completed Not Available Health Note 08/11/2022 12:05:56 Hernia repair w/mesh completed Not Available Health Note 08/11/2022 12:05:56 Imaging Results Imaging Date Name Status LastModified by Organiz ation Details LastModified Time 03/24/2024 US, kidney completed [facility] [address] [place], [address], 03/24/2024 16:38:00 Procedure Notes None recorded. Medical Equipment None Reported. Allergies Allergen ID Allergen Name Allergen Category Reaction Reaction Severity Criticality Documentation Date Start Date Code Code System Note Provider Name and Address Organization Details Recorded Time 798298 Penicilli n Not available Not available Not available Not available 04/14/2020 37212 RxNorm Not Available [facility] 0 23:47:52 Medications Name Sig Start Date Stop Date Status Note LastModified by Organization Details LastModified Time tolterodi ne ER 2 mg capsule,e xtended release 24 hr TAKE 1 CAPSULE BY MOUTH EVERY DAY active Not Available Not Available No t Available atorvasta tin 20 mg tablet 20mg 1/day active Not Available Not Available No t Available ipratropi um 0.5 mg-albute rol 3 mg (2.5 mg base)/3 mL nebulizat ion soln USE 1 VIAL VIA NEBULIZE R FOUR TIMES DAILY NEEDED FOR WHEEZING active Not Available Not Available No t Available metoprolo l succinate ER 50 mg tablet,ex tended release 24 hr 03/07 completed HN: Patient reports no longer taking Not Available Not Available Not Available tolterodi ne 2 mg tablet 2mg 1/day 03/07 completed Not Available Not Available Not Available tamsulosi n 0.4 mg capsule 0.4mg 1/day 2023 active Not Available Not Available Not Avai lable amlodipin e 10 mg tablet active Not Available Not Available Not Available pantopraz ole 40 mg tablet,de layed release TAKE 1 TABLET BY MOUTH EVERY OTHER DAY active Not Available Not Available No t Available fosinopri l 40 mg tablet 40mg 1/day active Not Available Not Available No t Available monteluka st 10 mg tablet 10mg 1/day active Not Available Not Available No t Available metoprolo l succinate ER 25 mg tablet,ex tended release 24 hr active Not Available Not Available Not Available albuterol sulfate HFA 90 mcg/actua tion aerosol inhaler INHALE 2 PUFFS BY MOUTH EVERY 4 HOURS NEEDED FOR SHORTNES S OF BREATH active Not Available Not Available No t Available ipratropi um bromide 0.02 % solution for inhalatio n USE 2.5 ML VIA NEBULIZE R FOUR TIMES DAILY NEEDED FOR SHORTNES S OF BREATH active Not Available Not Available No t Available ezetimibe 10 mg tablet 10mg 1/day active Not Available Not Available No t Available vitamin E VITAMIN E 1/day active Not Available Not Available No t Available Vitamin D3 2000iu 1/day active Not Available Not Available No t Available Advair Diskus 250mcg/5 0mcg 2/day 03/07 completed Not Available Not Available Not Available peg 3350-elec trolytes 236 gram-22.7 4 gram-6.74 gram-5.86 gram solution DRINK UPTO 7 LITERS THE DAY BEFORE COLONOSC OPY AND DRINK 1 LITER 6 HOURS BEFORE APPOINTM ENT 03/07 completed HN: Patient reports no longer taking Not Available Not Available Not Available mirabegro n ER 25 mg tablet,ex tended release 24 hr TAKE 1 TABLET BY MOUTH EVERY DAY active Not Available Not Available No t Available Eliquis 5 mg tablet TAKE 1 TABLET BY MOUTH TWICE DAILY active Not Available Not Available No t Available metoprolo l succinate ER 25 mg capsule sprinkle, ext. release 24 hr 25mg 1/day 03/07 completed Not Available Not Available Not Available Wixela Inhub 250 mcg-50 mcg/dose powder for inhalatio n INHALE 1 PUFF BY MOUTH TWICE DAILY active Not Available Not Available No t Available Glucosami ne [place]ond[place] in GLUCOSAM INE CHONDROI TIN 1/day 03/07 completed Not Available Not Available Not Available Vitals Date Recorded Body weight Body height Body mass index (BMI) Provider Name and Address Organization Details Last Updated DateTime 08/15/2022 948994.1455 40323 g 180.34 cm 35.3 kg/m2 Not Available Health Note 08/15/2022 08:33:55 Date Recorded Body height Body mass index (BMI) Body weight Provider Name and Address Organization Details Last Updated DateTime 03/13/2023 180.34 cm 34.9 kg/m2 850898.227 22954 g Not Available Health Note 03/13/2023 08:10:51 Date Recorded Body height Body weight Body mass index (BMI) Provider Name and Address Organization Details Last Updated DateTime 03/18/2024 180.34 cm 276097.7624 82311 g 35.4 kg/m2 Not Available Health Note 03/18/2024 08:38:34 Social History Question Answer Notes LastModified by Organizat ion Details LastModified Time Tobacco Smoking Status Never Smoker Not Available Health Note 03/14/2024 18:58:22 What Is Your Level Of Alcohol Consumption? None Information not available 03/18/2024 What Is Your Level Of Caffeine Consumption? Occasional [email or web address] Information not available 03/14/2024 How Much Tobacco Do You Chew? None [email or web address] Information not available 03/14/2024 Do You Or Have You Ever Used E-cigarettes Or Vape? Never Used Electronic Cigarettes [email or web address] Information not available 03/14/2024 Race White [email or web address] Information n ot available 04/15/2020 Marital Status [email or web address] Informatio n not available 08/11/2022 What Was The Date Of Your Most Recent Tobacco Screening? 03/18/2024 [email or web address] Information not available 03/14/2024 What Is Your Relationship Status? [email or web address] Information not available 03/14/2024 Are You Sexually Active? No [email or web address] Information not available 03/14/2024 Do You Or Have You Ever Used Smokeless Tobacco? Never Used Smokeless Tobacco [email or web address] Information not available 03/14/2024 Do You Use Any Illicit Or Recreational Drugs? No [email or web address] Information not available 03/14/2024 Has Tobacco Cessation Counseling Been Provided? No Information not available 03/18/2024 Do You Or Have You Ever Used Any Other Forms Of Tobacco Or Nicotine? No agranero Information not available 08/15/2022 How Many Days In The Past Year Have You Consumed 5 Or More Drinks? 0 [email or web address] Information no t available 03/14/2024 Sex: Male Functional Status None recorded. Mental Status None recorded. Family History Relationship Description Onset Age of this Age Resolved Age Notes Notes:Heart disease:Mother Cancer, prostate:Father Asthma:Runs in Family Medical History Condition Response High Blood Pressure Y Kidney Stones N Lung Disease N Depression N GERD/Acid Reflux Y Sexually Transmitted Infection N Diabetes N Bleeding Disorder N Cancer N High Cholesterol Y Heart Disease Y Immunizations Vaccine Type Date Status Provider Name and Address Organization Details Recorded Time Pneumococcal conjugate PCV 13 04/17/2013 completed Not Available Health Note 03/14/2024 18:58:25 zoster live 03/24/2009 completed Not Available Health Note 0 03/14/2024 18:58:25 influenza, unspecified formulation 08/14/2023 completed Holden Meath null, [facility] 03/18/2024 13:52:13 SARS-COV-2 (COVID-19) vaccine, UNSPECIFIED 03/14/2024 completed Holden Meath null, [facility] 03/18/2024 13:52:13 pneumococcal polysaccharide PPV23 01/21/2013 completed Not Available Health Note 2023 18:58:25 Influenza vaccine, quadrivalent, adjuvanted 08/13/2023 completed Holden Meath null, [facility] 03/18/2024 13:52:12 RSV, bivalent, protein subunit RSVpreF, diluent reconstituted, 0.5 mL, PF 07/31/2023 completed Holden Meath null, [facility] 03/18/2024 13:52:13 COVID-19, mRNA, LNP-S, PF, 50 mcg/0.5 mL 03/13/2024 completed Holden Meath null, [facility] 03/18/2024 13:52:13 COVID-19, mRNA, LNP-S, PF, 50 mcg/0.5 mL 08/22/2023 completed Holden Meath null, [facility] 03/18/2024 13:52:13 Pneumococcal conjugate PCV 13 11/05/2000 completed Ana Maria Romero null, [facility] 06/07/2023 09:58:19 pneumococcal polysaccharide PPV23 11/05/2000 completed Ana Maria Romero null, [facility] 06/07/2023 09:58:19 influenza, trivalent, adjuvanted 08/08/2019 completed Ana Maria Romero null, [facility] 06/07/2023 09:58:19 influenza, trivalent, adjuvanted 08/10/2017 completed Ana Maria Romero null, [facility] 06/07/2023 09:58:19 influenza, trivalent, adjuvanted 08/15/2018 completed Ana Maria Romero null, [facility] 06/07/2023 09:58:19 zoster recombinant 05/06/2019 completed Ana Maria Romero null, [facility] 06/07/2023 09:58:19 zoster recombinant 07/05/2019 completed Ana Maria Romero null, [facility] 06/07/2023 09:58:19 Influenza vaccine, quadrivalent, adjuvanted 07/14/2020 completed Ana Maria Romero null, [facility] 06/07/2023 09:58:19 Influenza vaccine, quadrivalent, adjuvanted 07/18/2021 completed Ana Maria Romero null, [facility] 06/07/2023 09:58:19 Influenza vaccine, quadrivalent, adjuvanted 08/10/2022 completed Ana Maria Heather null, [facility] 06/07/2023 09:58:19 COVID-19, mRNA, LNP-S, PF, 100 mcg/0.5mL dose or 50 mcg/0.25mL dose 12/31/2020 completed Ana Maria Romero null, [facility] 06/07/2023 09:58:19 COVID-19, mRNA, LNP-S, PF, 100 mcg/0.5mL dose or 50 mcg/0.25mL dose 01/28/2021 completed Ana Maria Romero null, [facility] 06/07/2023 09:58:19 COVID-19, mRNA, LNP-S, PF, 100 mcg/0.5mL dose or 50 mcg/0.25mL dose 03/14/2022 completed Ana Maria Romero null, [facility] 06/07/2023 09:58:19 COVID-19, mRNA, LNP-S, PF, 100 mcg/0.5mL dose or 50 mcg/0.25mL dose 08/26/2021 completed Ana Maria Romero null, [facility] 06/07/2023 09:58:19 COVID-19, mRNA, LNP-S, bivalent, PF, 50 mcg/0.5 mL or 25mcg/0.25 mL dose 08/10/2022 [facility] 09:58:19 pneumococcal polysaccharide PPV23 01/21/2013 [facility] 09:58:19 [facility]dap 03/27/2014 [facility] 09:58:19 Pneumococcal conjugate PCV 13 03/17/2015 [facility] 09:58:19 zoster live 03/24/2009 [facility] 09:58:19 Influenza, high dose seasonal 07/28/2016 [facility] 09:58:19 Influenza, high dose seasonal 08/11/2015 [facility] 09:58:19 Influenza, high dose seasonal 09/08/2014 [facility] 09:58:19 Influenza, seasonal, injectable 09/14/2012 [facility] 09:58:20 Influenza, seasonal, injectable, preservative free 08/28/2011 [facility] 09:58:20 Influenza, seasonal, injectable, preservative free 09/02/2013 [facility] 09:58:20 Hep A, adult 03/24/2009 [facility] 09:58:20 Hep A, adult 10/15/2009 [facility] 09:58:20 [facility] 04/10/2006 [facility] 09:58:20 Past Encounters Encounter ID Performer Location Encounter Start Date Encounter Closed Date Diagnosis/Indication Diagnosis SNOMED-CT Code [id number] Nikhil Chaparro MD [facility] [address] [place] [address] 08/15/2022 08:33:49 08/15/2022 10:06:14 Prostate specific antigen above reference range [id number] [facility] [address] [place] [address] 03/13/2023 08:10:48 03/13/2023 09:18:05 Prostate specific antigen above reference range [id number] Lower urin gricelda tract symptoms due to benign prostatic hypertrophy [id number] Nikhil Chaparro MD [facility] [address] [place] [address] 03/18/2024 08:38:28 03/18/2024 14:42:12 Prostate specific antigen above reference range [id number] Lower urin gricelda tract symptoms due to benign prostatic hypertrophy [id number] Abnormal f indings on diagnostic imaging of urinary organs [id number] Health Concerns Section Related Observation LastModified by Organization Detai ls LastModified Time None Recorded Concern Status LastModified by Organization Details LastModified Time None Recorded Advance Directives Directive None Recorded Payers Encounter Date Sequence Insurance Name Policy Number Policy Villaseñor Covered Member ID Villaseñor Member ID Guarantor Name 03/18/2024 1 [place] [employer] Dm Ribeiro [id number] Dm Vigil 03/18/2024 2 [employer] OPTIONS (MEDICARE SUPPLEMENT) Dm Ribeiro [id number] Dm Vigil 03/13/2023 1 [place] [employer] Dm Ribeiro [id number] Dm Vigil 03/13/2023 2 [employer] OPTIONS (MEDICARE SUPPLEMENT) Dm Ribeiro [id number] Dm Vigil 08/15/2022 1 [place] [employer] Dm Ribeiro [id number] Dm Vigil 08/15/2022 2 [employer] OPTIONS (MEDICARE SUPPLEMENT) Dm Ribeiro [id number] Dm Vigil Notes Date Note Type Note Provider Name and Address Organization Details Recorded Time 08/15/2022 text/html HPI Notes: This is a 72 year old male who is here for the evaluation and management of an elevated prostate specific antigen. This has been noted now for about 10 years. His prostate specific antigen has ranged from 4 ng/mL to 13 ng/mL. He underwent a negative transrectal ultrasoung guided prostate biopsy in 2017. His most recent prostate specific antigen was 4.5 ng/mL (03/31/2022). There is a family history of prostate cancer. His father was treated with brachytherapy in his 80's. He of unrelated causes in his 's. Nikhil Chaparro MD [address] [place] [address],[address], [place], [address], [facility] 08/15/2022 09:23:28 03/13/2023 text/html HPI Notes: This is a 73 year old male here for the ongoing management of an elevated prostate specific antigen and benign prostatic hyperplasia with lower urinary tract symptoms. He has had an elevated prostate specific antigen since around 2009. His prostate specific antigen has ranged from 4 ng/mL to 13 ng/mL. He underwent a negative transrectal ultrasound guided prostate biopsy in 2016. His most recent prostate specific antigen was 4.8 ng/mL (03/08/2023). There is a family history of prostate cancer. His father was treated with brachytherapy in his 80's. He of unrelated causes in his s. He does struggle with benign prostatic hyperplasia with lower urinary tract symptoms. He currently manages his symptoms with tolterodine ER 2 mg daily and tamsulosin 0.4 mg daily. He denies gross hematuria. Nikhil Chaparro MD [address] [place] [address],[address], [place], [address], [facility] 03/13/2023 09:07:53 03/18/2024 text/html HPI Notes: This is a 74 year old male here for the ongoing management of an elevated prostate specific antigen and benign prostatic hyperplasia with lower urinary tract symptoms. He has had an elevated prostate specific antigen since around 2009. His prostate specific antigen has ranged from 4 ng/mL to 13 ng/mL. He underwent a negative transrectal ultrasound guided prostate biopsy in 2016. His most recent prostate specific antigen was 5.49 ng/mL (03/13/2024). There is a family history of prostate cancer. His father was treated with brachytherapy in his 80's. He of unrelated causes in his s. International Prostate Symptom Score: 4 He currently manages his symptoms with tolterodine ER 2 mg daily and tamsulosin 0.4 mg daily. He has developed some issues with mental fogginess recently and is wondering if there is an alternative to anticholinergic therapy. He denies gross hematuria. He also remembers being told there is something on one of his kidneys that may need to be addressed but can't remember what it was. Nikhil Chaparro MD [address] [place] [address],[address], [place], [address], [facility] 03/18/2024 14:12:35
--- NOTE | 2024-03-26 08:15 | FL_ITS ---
Patient: DM Curran PERRY Facility:?[facility] Patient ID:?[id number] Site Patient ID:?[id number]. Site :?[id number] Study:?XRay-Hip Right INJECTION UNDER FLUORO TO RE-03/26/2024 9:09:25 AM Ordering Physician:PREMA Final Report: Indication: UNILATERAL PRIMARY OSTEOARTHRITIS Comparison: 03/14/2024 Procedure : Informed consent was obtained. The site was marked. Time-out was performed. The skin of the right hip was cleansed with ChloraPrep. A sterile drape was placed. 8 cc of 1 percent lidocaine was administered for superficial anesthesia. Subsequently a 22 gauge spinal needle was introduced into the right hip joint under intermittent fluoroscopic guidance. 7 cc of 1 percent lidocaine and 2 cc 40 milligram/cc Depo-Medrol then injected into the right hip joint. The needle was removed and hemostasis achieved with direct pressure. A dressing was placed. The patient tolerated the procedure well without immediate complication. Total fluoroscopy time 11 seconds. Impression: Successful fluoroscopically guided right hip injection with 80 milligrams of Depo-Medrol. Dictated by Dm Juarez MD @ 03/26/2024 10:51:16 AM Signed by:?Dm Juarez MD @03/26/2024 10:51:16 AM (Electronic Signature)
== END 2024-03-26 07:32 | disposition home or self-care (01) ==
LOC: RAD 07:33
PROVIDERS: PCP Family Medicine; Visit Provider Orthopaedic Surgery Sports Medicine
DX: M16.11 Unilateral primary osteoarthritis, right hip (principal)
CPT/HCPCS: 20610; 77002; Q9966

== ENCOUNTER 2024-06-26 07:32 | Day surgery (SDC) | payer MEDICARE, SELFPAY ==
[2024-06-18 14:15] VITALS: BP 115/62; PULSE 91; RESP 12; TEMP 35.7; O2SAT 90
[2024-06-26] VITALS (24 sets, daily range): BP systolic 100–140; BP diastolic 56–88; PULSE 71–109; RESP 12–16; TEMP 35.7–37.1; O2SAT 89–96; BMI 36.9
--- OUTSIDE RECORDS SUMMARY | 2024-06-26 07:35 | XMS_ITS | Continuity of Care Document ---
Author Organization [facility], [facility] Address [address] [place] [address] Care Team Providers Care Reel Slitter Name Role Phone ENMA ARCEO Primary Care Provider [phone] Assessment Encounter Date Assessment Date Assessment LastModified by Organization Details LastModified Time 04/18/2024 04/18/2024 74 year old male with a history of an elevated prostate specific antigen, overactive bladder, benign prostatic hyperplasia with lower urinary tract symptoms. Not available 04/18/2024 11:09:11 Plan of Treatment Reminders Order Date Submit Date Provider Last Modified By Organization Details Last Modified Time Details Appointments None recorded. Lab None recorded. Referral None recorded. Procedures None recorded. Surgeries None recorded. Imaging None recorded. Medication Orders Myrbetriq 25 mg tablet,ext ended release 2023 024 [id number], [address], [place], [phone], 11:10:06 Patient TargetsNo targets recorded. Patient Instructions Encounter Date Encounter Id Patient Instructions Last Modified By Organization Details Last Modified Time 04/18/2024 [id number] Elevated prostat e specific antigen: His prostate specific antigen remains stable. Examination is unchanged. We will repeat in 1 year. Benign prostatic hyperplasia with lower urinary tract symptoms: Continue tamsulosin 0.4 mg daily. Overactive bladder: I will re-prescribe Myrbetriq ER 25 mg daily and hopefully now with updated documentation this provides the necessary means for him to get approval. Renal cyst: Stable on recent renal ultrasound. We will monitor. Not available 04/18/2024 11:09:00 Reason for Referral None Reported. Results Created Date Observation Date Name Description Value Unit Range Abnormal Flag LastModifiedBy Organization Detail LastModifiedTime 03/24/20 24 03/24/2024 Kamari HARPER ation record ed. [facility] [address], [place], [address], 03/24/2024 16:38:00 Result Notes None recorded. Problems Name Status Onset Date Resolution Date Notes Provider Name and Address Organization Details Recorded Time Prostate specific antigen above reference range Active 03/07/20 24 Holden Meath null, [facility] 03/07/2024 09:08:00 Lower urinary tract symptoms due to benign prostatic hypertrophy Active 03/07/20 24 Holden Meath null, [facility] 03/07/2024 09:08:05 Sensorineural hearing loss of bilateral ears Active 03/07/20 24 Holden Meath null, [facility] 03/07/2024 09:10:26 Impaired fasting glycemia Active 03/07/20 24 Holden Meath null, [facility] 03/07/2024 09:10:36 Atrial fibrillation Active 03/07/20 24 Holden Meath null, [facility] 03/07/2024 09:10:45 Cyst of kidney Active 03/07/20 24 Holden Meath null, [facility] 03/07/2024 09:10:54 Coronary atherosclerosis Active 03/07/20 24 Holden Meath null, [facility] 03/07/2024 09:11:05 Obstructive sleep apnea syndrome Active 03/07/20 24 Holden Meath null, [facility] 03/07/2024 09:11:17 Polyp of colon Active 03/07/20 24 Holden Meath null, [facility] 03/07/2024 09:11:25 Asthma Active 03/07/20 24 Holden Meath null, [facility] 03/07/2024 09:11:36 Anxiety Active 03/07/20 24 Holden Meath null, [facility] 03/07/2024 09:11:48 Acid reflux Active 03/07/20 24 Holden Meath null, [facility] 03/07/2024 09:12:00 Hyperlipidemia Active 03/07/20 24 Holden Rahmanh null, [facility] 03/07/2024 09:12:07 Hypertensive disorder Active 03/07/20 24 Holden Rahmanh null, [facility] 03/07/2024 09:12:16 Abnormal findings on diagnostic imaging of urinary organs Active 04/11/20 24 Holden Rahman null, [facility] 04/11/2024 13:05:55 Problem Notes None recorded. Procedures Surgical History Date Name Laterality Status Provider Name and Address Organization Details Recorded Time 04/18/20 24 COMPLEX VISIT completed Nikhil Chaparro MD [address] [place] [address],[address], [place], [address], [facility] 04/18/2024 10:30:32 04/18/20 24 Past Data Reviewed completed Nikhil Chaparro MD [address] [place] [address],[address], [place], [address], [facility] 04/18/2024 10:30:32 03/18/20 24 COMPLEX VISIT completed Nikhil Chaparro MD [address] [place] [address],[address], [place], [address], [facility] 03/18/2024 14:10:25 03/18/20 24 Past Data Reviewed completed Nikhil Chaparro MD [address] [place] [address],[address], [place], [address], [facility] 03/18/2024 13:55:41 03/18/20 24 Bladder Scan completed Holden Maldonado null, [facility] 03/18/2024 14:00:59 08/15/20 22 Bladder Scan completed Yaneth Miller null, [facility] 08/15/2022 09:13:39 08/01/20 22 Diagnostic colonoscopy completed Not Available Health Note 08/11/2022 12:05:56 10/05/20 15 Us urine capacity measure completed Not Available Health Note 08/11/2022 12:05:56 03/08/20 07 Biopsy of prostate completed Not Available Health Note 08/11/2022 12:05:56 11/05/19 01 Prp i/ivanna init reduc >5 yr completed Not Available Health Note 08/11/2022 12:05:56 01/01/19 87 Remove spine lamina 1/2 lmbr completed [...] Available Health Note 08/11/2022 12:05:56 Imaging Results None recorded. Procedure Notes None recorded. Medical Equipment None Reported. Allergies Allergen ID Allergen Name Allergen Category Reaction Reaction Severity Criticality Documentation Date Start Date Code Code System Note Provider Name and Address Organization Details Recorded Time 821700 Penicilli n Not available Not available Not available Not available 04/14/2020 99369 RxNorm Not Available [facility] 0 23:47:52 Medications Name Sig Start [...] tamsulosi n 0.4 mg capsule 0.4mg 1/day active Not Available Not Available No t Available amlodipin e 10 mg tablet active Not [...] 6 HOURS BEFORE APPOINTM ENT 03/07 completed 2022- HN: Patient reports no longer taking Not Available Not Available Not Available trospium ER 60 mg capsule,e xtended release 24 hr TAKE 1 CAPSULE BY MOUTH EVERY DAY active Not Available Not Available No t Available Myrbetriq 25 mg tablet,ex tended release Take 1 tablet every day by oral route. 2023 active Not Available Not Available Not Avai lable Eliquis 5 mg tablet TAKE 1 TABLET [...] completed Not Available Not Available Not Available Gemtesa 75 mg tablet TAKE 1 TABLET BY MOUTH EVERY DAY active Not Available Not Available No t Available Vitals Date Recorded Body height Provider Name an d Address Organization Details Last Updated DateTime 04/18/2024 180.34 cm [facility] Social History Question Answer Notes LastModified by [...] Date Of Your Most Recent Tobacco Screening? 04/18/2024 Information not available 04/18/2024 What Is Your Relationship Status? [email or web address] Information [...] [id number] Information no t available 03/14/2024 Sex: Unknown Functional Status None recorded. Mental Status None recorded. Family History Relationship Description Onset Age of this Age Resolved Age Notes Father Family history of malignant neoplasm of prostate Notes:Heart disease:Mother Cancer, prostate:Father Asthma:Runs in Family [...] unspecified formulation 08/14/2023 completed Holden Meath null, [facility] 03/18/2024 13:52:13 SARS-COV-2 (COVID-19) vaccine, UNSPECIFIED 03/14/2024 completed Holden Meath null, [facility] 03/18/2024 13:52:13 pneumococcal polysaccharide PPV23 01/21/2013 completed Not Available Health Note 2023 18:58:25 Influenza, adjuvanted, quadrivalent, PF 08/13/2023 completed Holden Meath null, [facility] 03/18/2024 13:52:12 RSV, bivalent, protein subunit RSVpreF, diluent reconstituted, 0.5 mL, PF 07/31/2023 completed Holden Meath null, [facility] 03/18/2024 13:52:13 COVID-19, mRNA, LNP-S, PF, 50 mcg/0.5 mL 03/13/2024 completed Holden [facility] null, [facility] 03/18/2024 13:52:13 COVID-19, mRNA, LNP-S, PF, 50 mcg/0.5 mL 08/22/2023 completed Holden Meath null, [facility] 03/18/2024 13:52:13 Tdap 03/28/2024 completed Holden Meat null, [facility] 04/18/2024 11:01:18 Pneumococcal conjugate PCV 13 11/05/2000 completed Ana Maria Romero null, [facility] 06/07/2023 09:58:19 pneumococcal polysaccharide PPV23 11/05/2000 completed Ana Maria Romero null, [facility] 06/07/2023 09:58:19 Influenza, adjuvanted, trivalent, PF 08/08/2019 completed Ana Maria Romero null, [facility] 06/07/2023 09:58:19 Influenza, adjuvanted, trivalent, PF 08/10/2017 completed Ana Maria Romero null, [facility] 06/07/2023 09:58:19 Influenza, adjuvanted, trivalent, PF 08/15/2018 completed Ana Maria Romero null, [facility] 06/07/2023 09:58:19 zoster recombinant 05/06/2019 completed Ana Maria Romero null, [facility] 06/07/2023 09:58:19 zoster recombinant 07/05/2019 completed Ana Maria Romero null, [facility] 06/07/2023 09:58:19 Influenza, adjuvanted, quadrivalent, PF 07/14/2020 completed Ana Maria Romero null, [facility] 06/07/2023 09:58:19 Influenza, adjuvanted, quadrivalent, PF 07/18/2021 completed Ana Maria Romero null, [facility] 06/07/2023 09:58:19 Influenza, adjuvanted, quadrivalent, PF 08/10/2022 completed Ana Maria Romero null, [facility] 06/07/2023 09:58:19 COVID-19, mRNA, LNP-S, PF, 100 mcg/0.5mL dose or 50 mcg/0.25mL dose 12/31/2020 [facility] 09:58:19 COVID-19, mRNA, LNP-S, PF, 100 mcg/0.5mL dose or 50 mcg/0.25mL dose 01/28/2021 completed Ana Maria Romero null, [facility] 06/07/2023 09:58:19 COVID-19, mRNA, LNP-S, PF, 100 mcg/0.5mL dose or 50 mcg/0.25mL dose 03/14/2022 completed Ana Maria Romero null, [facility] 06/07/2023 09:58:19 COVID-19, mRNA, LNP-S, PF, 100 mcg/0.5mL dose or 50 mcg/0.25mL dose 08/26/2021 completed Ana Maria Romero null, [facility] 06/07/2023 09:58:19 COVID-19, mRNA, LNP-S, bivalent, PF, 50 mcg/0.5 mL or 25mcg/0.25 mL dose 08/10/2022 completed Ana Maria Romero null, [facility] 06/07/2023 09:58:19 pneumococcal polysaccharide PPV23 01/21/2013 completed Ana Maria Romero null, [facility] 06/07/2023 09:58:19 Tdap 03/27/2014 completed Ana Maria Romero null, [facility] 06/07/2023 09:58:19 Pneumococcal conjugate PCV 13 03/17/2015 completed Ana Maria Heather null, [facility] 06/07/2023 09:58:19 zoster live 03/24/2009 completed Ana Maria Heather null, [facility] 06/07/2023 09:58:19 Influenza, high-dose, trivalent, PF 07/28/2016 completed Ana Maria Romero null, [facility] 06/07/2023 09:58:19 Influenza, high-dose, trivalent, PF 08/11/2015 completed Ana Maria Romero null, [facility] 06/07/2023 09:58:19 Influenza, high-dose, trivalent, PF 09/08/2014 completed Ana Maria Heather null, [facility] 06/07/2023 09:58:19 Influenza, split virus, trivalent, preservative 09/14/2012 completed Ana Mariasegundo Jadeand null, [facility] 06/07/2023 09:58:20 Influenza, split virus, trivalent, PF 08/28/2011 completed Ana Maria Romero null, [facility] 06/07/2023 09:58:20 Influenza, split virus, trivalent, PF 09/02/2013 completed Ana Maria Romero null, [facility] 06/07/2023 09:58:20 Hep A, adult 03/24/2009 completed Ana Maria Romero null, [facility] 06/07/2023 09:58:20 Hep A, adult 10/15/2009 completed Ana Maria Romero null, [facility] 06/07/2023 09:58:20 DTaP 04/10/2006 completed [facility] 06/07/2023 09:58:20 Past Encounters Encounter ID Performer Location Encounter Start Date Encounter Closed Date Diagnosis/Indication Diagnosis SNOMED-CT Code [id number] Nikhil Chaparro MD [facility] [address] [place] [address] 03/18/2024 08:38:28 03/18/2024 14:42:12 Prostate specific antigen above reference range [id number] Lower urin gricelda tract symptoms due to benign prostatic hypertrophy 15498735749854 Abnormal f indings on diagnostic imaging of urinary organs [id number] Nikhil Chaparro MD [facility] [place] [address] [facility] [address] [place] [address] 04/18/2024 10:58:53 04/18/2024 11:20:50 Prostate specific antigen above reference range 551307391 Lower urin gricelda tract symptoms due to benign prostatic hypertrophy 92248709515156 Abnormal f indings on diagnostic imaging of urinary organs 927362851 Overactive urinary bladder 757504620 Health Concerns Section Related Observation LastModified by Organization Detai ls LastModified Time None Recorded Concern Status LastModified by Organization Details LastModified Time None Recorded Payers Encounter Date Sequence Insurance Name Policy Number Policy Villaseñor Covered Member ID Villaseñor Member ID Guarantor Name 04/18/2024 1 MEDICARE B-MD: [employer] Dm Ribeiro [id number] Dm Vigil 04/18/2024 2 [employer] (MEDICARE SUPPLEMENT) Dm Ribeiro [id number] Dm Vigil Notes Date Note Type Note Provider Name and Address Organization Details Recorded Time 04/18/2024 text/html HPI Notes: This is a 74 year old male here for the ongoing management of an elevated prostate specific antigen, overactive bladder, and benign prostatic hyperplasia with lower urinary tract symptoms. He has had an elevated prostate specific antigen since around 2009. His prostate specific antigen has ranged from 4 ng/mL to 13 ng/mL. He underwent a negative transrectal ultrasound guided prostate biopsy in 2017. His most recent prostate specific antigen was 5.49 ng/mL (03/13/2024). There is a family history of prostate cancer. His father was treated with brachytherapy in his 80's. He of unrelated causes in his 90's. International Prostate Symptom Score: 4 He currently manages his symptoms with tamsulosin 0.4 mg daily. He has been taking his tamsulosin to deal with his stream and obstructive voiding symptoms. He also has symptoms of overactive bladder. He is currently taking tolterodine ER 2 mg daily to deal with his urinary urgency and frequency. Unfortunately he has developed worsening mental fogginess and worsening loss of memory while on this medication. I have recommended that he stop it and that we move away from anti-cholinergic medications as these can be a direct cause for this. I prescribed mirabegron ER 25 mg daily to avoid these side effects. Unfortunately his insurance company has initially denied this and we are working to get him this medication. He has a known large left renal cyst. This was stable on recent renal ultrasound 03/24/2024. Nikhil Chaparro MD [address] [facility],[address], [place], [address], [place] - [facility] 04/18/2024 11:10:10
--- OUTSIDE RECORDS SUMMARY | 2024-06-26 07:35 | XMS_ITS | Continuity of Care Document ---
Author Organization [facility] Address [address] [place] [address] Phone Care Team Providers Care Jewel Waxer Name Role Phone Jarek Donnelly MD Unavailable [...] Level 4 Electrocardiogram, routine ECG with at [address] Advance Directives Directive Yes / No Effective Date File Name No Information Encounters Encounter Description Practice Location Reason(s) For Visit Diagnoses Date Provider Providers Copied on Encounter [facility], [address], [place], [place], [id number], tel:[phone] [facility] [place] No Information 1 Andrzej Tilley. [address], [place], [place], [id number] , [place]. tel:[phone] [facility], [address], [place], [place], [id number], [place] tel:[phone] [facility] [place] No Information 0 Faustino phillips. [address] [facility], [place], [place], [id number] , . tel:[phone] OP Estab Pt Level 4 [facility], [address], [place], [place], [id number], tel:[phone] [facility] [place] follow up (chief complaint)Ca rdiovascular Review (chief complaint) Paroxysmal atrial fibrillation Acute on chronic diastolic congestive heart failureCAD in [place] arteryEssent ial hypertension Dyslipidemia Jan- 0 Devadoss Ramprakas h. [address] [place], [id number] , [place]. tel:[phone] Referring Provider: Anitha Harmon, [address], [place], [place], [id number]. tel:[phone] [facility], [address], [place], [place], [id number], tel:[phone] [facility] [place] Paroxysmal atrial fibrillation 0 Solmaxx Tilley. [address] , [place], [place], [id number] , [place]. tel:[phone] Referring Provider: Anitha Harmon, [address], [place], [place], [id number]. tel:[phone] Office/OP Visit New Patient Level 4 [facility], [address], [place], [place], [id number], tel:[phone] [facility] [place] Introduction (chief complaint)Ca rdiovascular Review (chief complaint) Paroxysmal atrial fibrillation Acute on chronic diastolic congestive heart failureEssen tial hypertension Dyslipidemia 0 Devadoss Hilarys h. [address], [place], [place], [id number] , [place]. tel:[phone] Referring Provider: Anitha Harmon, [address], [place], [place], [id number]. tel:[phone] Family History Family Member Type Diagnosis Age At Onset Mother Problem (finding) Congestive heart failur e Sister Problem (finding) cardiomyopathy Father Problem (finding) Cancer, prostate Father Problem (finding) a-fib Mother Problem (finding) Hypertension Father Problem (finding) Stroke Mother Problem (finding) Cardiomyopathy Sister Problem (finding) Hypertension Payers Payer name Insurance type Covered constitution party ID Tiffanie paez(s) Medicare Claims Admin AG [id number] [facility] [id number] Social History Type Description Quantity Date Captured [...] is here from [place]. Follows up with pet ambassador in [place] - Dr. Cheatham. Initially saw [...]
--- OUTSIDE RECORDS SUMMARY | 2024-06-26 07:35 | XMS_ITS | Clinical Summary ---
Author Organization [facility] Address [place], [place] [address] Care Team Providers Care Home Energy Auditor Name Role Phone Lang Almazan MD Unavailable Vlad Salazar MD Unavailable [phone] Ford Ahuja MD Unavailable Robbie Jackson OD Unavailable Kylee Cheatham MB Unavailable [phone] Jazmyn Hay PURSE SEINER Unavailable [phone] Anitha Harmon MD Unavailable Surya Marquis MD Unavailable Mikey White MD Primary Care Provider [phone] Landy Kraus RN Unavailable [phone] Nikhil Chaparro MD Unavailable Allergies Active Allergy [...] upper arm cuff. 1 Each 0 Active Mucus Clearing Device deviIndications:Liliana st congestion [...] before colonoscopy appointment 4000 mL 4 Active CPAPIndications:Obs tructive sleep apnea CPAP (E0601) machine for home use at pressure: 12-15 , Choice of mask (A7030 or A7034) w/full face cushion (A7031) x1/mo, nasal cushion (A7032) x2/mo, or nasal pillows (A7033) x 2/mo; Length of Need: 99 months; Frequency of use: Daily 1 Each 11 4 Active Gemtesa 75 mg tablet Take 75 mg by mouth once daily. Active tolterodine (DETROL LA) 2 mg Extended-Release capsuleIndications: Urinary frequency Take 1 Capsule (2 mg) by mouth once daily. 90 Capsule 3 1 06/16/20 24 Discontinu ed(*Patien t states no longer taking) mirabegron EXTENDED-release (MYRBETRIQ) 25 mg tablet Take 1 Tablet by mouth once daily. 4 06/16/20 24 Discontinu ed(*Patien t states no longer taking) Active Problems Problem Noted Date Diagnosed Date Sensorineural hearing loss (SNHL) of both ears 0 04/25/2022 Elevated fasting glucose 08/06/2021 Overview: Jul 2021: Fasting 111. Hemoglobin A1c 5.4. April 2023: Fasting glucose 111, Hemoglobin A1c 5.7. Paroxysmal atrial fibrillation 04/05/2020 Overview: New diagnosis Dec 2019 when in [place], found on Graspr. Started on Flecainide, Metoprolol and eliquis in [place]. [place] Cd Reactor Operator Dr. Cheatham did holter monitor and echocardiogram [...] 2020: Colonoscopy with 20 polyps. Referred to [facility] for consult. Dr. Ahuja recommended repeat [...] Asthma action plan updated 10/04/2012 Bronchitis in [place] Oct 2018 to Nov 2018, placed on [...] Atrial flutter 04/26/2021 04/26/2021 Diastolic heart failure 04/06/202003/06 Thoracic aortic ectasia 04/06/2020 06/0 03/2023 Severe [...] Encounters Date Type Department Care Team Description 06/17/2024 Orders Only [facility] [[email or web address] [address] [place] [address] Mikey White MD 1 scan: (1-Ord) NFLD-EKG-8.12.24 06/16/2024 9:05 AM CDT Office Visit [facility] [[email or web address] [address] [place] [address] Mikey White MD Preoperative Exam (DOS: 06/26/2024/RIGHT Hip Replacement/[facility]/Dr Salvador/FAX [phone]) 06/16/2024 Travel 06/11/2024 9:30 AM CDT [place] [facility] [address] [place] [address] Focused Care Management (Htn, Obesity) 06/11/2024 Travel 05/07/2024 9:30 AM CDT [place] [facility] [address] [place] [address] Focused Care Management (Htn, Obesity) 05/07/2024 Travel 04/30/2024 10:15 AM CDT Office Visit [facility] [[email or web address]] [address] [place] [address] Juan Ramon Saxnea, [place] Consult (Left foot bunion, right great toenail) 04/30/2024 10:00 AM CDT Ancillary Procedure [facility] [[email or web address]] [address] [place] [address] 04/30/2024 Travel 04/28/2024 Telephone [facility] [[email or web address] [address] [place] [address] Mikey White MD Medication Management 04/28/2024 [place]reach [facility] [address] [place] [address] Landy Kraus, DHEERAJ Appointment ([facility] ) 04/14/2024 12:57 PM CDT - 04/14/2024 11:59 PM CDT Hospital Encounter [facility] [address] [place] [address] Kylee Cheatham MBBS Atrial fibrillation, unspecified type (HC); ASHD (arteriosclerotic heart disease); HYPERLIPIDEMIA; Hypertension, unspecified type 04/14/2024 Travel 04/11/2024 Telephone [facility] [address] [place] [address] Niharika Rivera RN Imaging 03/26/2024 Orders Only [facility] Scanner 1 scan: (1-Ord) [facility], INJ HIP RT, 03/26/2024 from Last 3 Months Immunizations Name Administration Dates Next Due AMB Influenza, IIV3 (Age >=3 years) Preserve Free (Flu Clinic Only) 09/02/2013 COVID-19 Vaccine Spikevax (M odevensna 50mcg/0.5mL) 12YO+ [id number] Formula PF 03/13/2024,08/22/2023 COVID-19 vaccine (Moderna 100mcg/0.5mL) [...] (Pneumovax) 01/21/2013,11/05/2000 Pneumococcal conj 13-Valent (Prevnar 13) 03/17/2015,04/17/2013,11/05/2000 RSV, Bivalent Vaccine Recons tituted (Abrysvo 120MCG/0.5mL) 07/31/2023 Tdap 03/28/2024,03/27/2014 Zoster (Shingrix-RZV, recombinant) 07/05/2019, Zoster (Zostavax-ZVL, live) [...] cardiomyopathy Cancer-ovarian Sister 2 Cancer-breast Sister 3 Anesthesia Problem No Family History Relation Name Status Comments Brother Father Maternal Grandfather Maternal Grandmother Mother Other Paternal Grandfather Paternal Grandmother Sister 1 Sister 2 Sister 3 Sister 4 Belen Alive Social History Tobacco Use Types Packs/Day Years [...] Sign Reading Time Taken Comments Blood Pressure 122/72 06/16/2024 8:55 AM CDT Pulse 74 06/16/2024 8:55 AM CDT Temperature 36.4 ??C (97.6 ??F) 08/13/2023 7:55 AM CD T Respiratory Rate 18 07/23/2023 9:16 AM CDT Oxygen Saturation 97% 06/16/2024 8:55 AM CDT Inhaled Oxygen Concentration - - Weight 116.9 kg (257 lb 11.2 oz) 06/16/2024 8:55 AM CDT Height 179.8 cm (5' 10.79) 06/16/2024 8:55 AM C DT Body Mass Index 36.16 06/16/2024 8:55 AM CDT Plan of Treatment Upcoming Encounters Date Type Department Care Team (Late st Contact Info) Description 06/30/2024 7:50 AM CDT Office Visit [facility] [[email or web address] [address] [place] [address] Mikey White MD [address] [place] [address] 07/15/2024 9:30 AM CDT Appointment [facility] [address] [place] [address] 07/16/2024 9:30 AM CDT Appointment [facility] [address] [place] [address] 07/17/2024 9:30 AM CDT Patient Outreach [facility] [address] [place] [address] 07/28/2024 9:00 AM CDT Office Visit [facility] [address] [place] [address] Jazmyn Hay, AZEEM [address] [facility] [address] [facility] [address] [place] [address] 07/31/2024 7:30 AM CDT Office Visit [facility] [[email or web address] [address] [place] [address] Ford Ahuja MD [address] [place] [address] 08/05/2024 9:00 AM CDT Office Visit [facility] [[email or web address] [address] [place] [address] Nikki Abraham, [facility] [address] [facility] [place] [address] 08/11/2024 7:00 AM CDT Office Visit [facility] [[email or web address] [address] [place] [address] Mikey White MD [address] [place] [address] Health Maintenance Due Date Last Done Comments Influenza for age 65+ 07/06/2024 08/13/2023 , 08/10/2022, 08/10/2022, Additional history exists Medicare Wellness for age 65+ 08/13/2024, 08/10/2022, 08/04/2021, Additional history exists Depression screening for age 12+ 08/16/2024 08/16/2023, 08/13/2023, 08/11/2023, Additional history exists BMI (ht and wt on same day) for age 18+ 06/16/2025 06/16/2024, 08/13/2023, 04/09/2023, Additional history exists Tetanus booster 03/28/2034 03/28/2024, 03/06, 03/24/2009 ([facility] Hepatitis C screening for ag e 18-79 Completed 04/05/2006, 07/31/2002 Pneumococcal series for age 65+ Completed 03/17/2015, 04/17/2013, 01/21/2013, Additional history exists Zoster (shingles) series for age 50+ Completed 07/05/2019, 05/06/2019, 03/24/2009 COVID-19 vaccine series Completed 03/13/20, 08/22/2023, 08/10/2022, Additional history exists Tdap Completed 03/28/2024, 03/27/2014 Procedures Procedure Name Priority Date/Time Associated Diagnosis Comments EKG 12 LEAD Routine 06/17/2024 1:33 PM CDT Paroxysmal atrial fibrillation (HC) NV READING EKG - NO CHARGE, COMP ONLY Routine 06/17/2024 1:32 PM CDT Paroxysmal atrial fibrillation (HC) PLATELET COUNT Routine 06/16/2024 10:37 AM CDT Preoperative examination HEMOGLOBIN Routine 06/16/2024 10:37 AM CDT Preoperative examination POTASSIUM Routine 06/16/2024 10:37 AM CDT Preoperative examination Essential hypertension XR FOOT 3 VIEWS LEFT Routine 04/30/2024 10:05 AM CDT Bunion of left foot MR CARDIAC STRESS IMAGING WWO Routine 04/14/2024 2:20 PM CDT Atrial fibrillation, unspecified type (HC) ASHD (arteriosclerotic heart disease) HYPERLIPIDEMIA Hypertension, unspecified type HEMATOCRIT/HGB,ISTA T Routine 04/14/2024 1:25 PM CDT SCAN-OPERATIVE/PROC EDURE REPORT 03/26/2024 12:00 AM CDT ANTI HCV Routine 04/05/2006 3:49 PM CDT Elevated Levels Of Transaminase Or Ldh from Last 3 Months or Most Recently Relevant to Health Maintenance Results * EKG 12 LEAD (06/17/2024 1:33 PM CDT) Mikey White MD EKG ORD * NV READING EKG - NO CHARGE, COMP ONLY (06/17/2024 1:32 PM CDT) Mikey White MD PB - PROVIDER ORLIN HORNE * PLATELET COUNT (06/16/2024 10:37 AM CDT) PLATELET COUNT 163 140 - 440 thou/cu mm 06/16/2024 10:44 AM CDT [facility] MPV 9.9 6.5 - 11.0 fL 06/16/2024 10:44 AM CDT [facility] Blood BLOOD SPECIMEN / Unknown Venipuncture / Unknown 06/16/2024 10:37 AM CDT 06/16/2024 10:39 AM CDT Mikey White MD HEMATOLOGY [facility] [address] [place] [address], * HEMOGLOBIN (06/16/2024 10:37 AM CDT) HEMOGLOBIN 15.7 13.5 - 17.5 g/dL 06/16/2024 10:44 AM CDT [facility] MCV 90 80 - 100 fL 06/16/2024 10:44 AM CDT [facility] Blood BLOOD SPECIMEN / Unknown Venipuncture / Unknown 06/16/2024 10:37 AM CDT 06/16/2024 10:39 AM CDT Mikey White MD HEMATOLOGY [facility] [address] [place] [address], * POTASSIUM (06/16/2024 10:37 AM CDT) POTASSIUM 4.8 3.5 - 5.1 mmol/L 06/16/2024 5:09 PM CDT [facility] Blood BLOOD SPECIMEN / Unknown Venipuncture / Unknown 06/16/2024 10:37 AM CDT 06/16/2024 10:39 AM CDT Mikey White MD CHEMISTRY Performing Organization Address [facility] Co de Phone Number [facility] [address] [place] [address], [place] * XR FOOT 3 VIEWS LEFT (04/30/2024 10:05 AM CDT) Anatomical Region Laterality Modality FEET, FOOT L Computed Radiogr aphy 05/01/2024 8:06 AM CDT Narrative 05/01/2024 8:06 AM CDT For Patients: ??As a result of the 21st Century Cures Act, medical imaging exams and procedure reports are released immediately into your electronic medical record. ??You may view this report before your referring provider. ??If you have questions, please contact your health care provider. Indication: Bunion Technique: Left foot 3 views Comparison: 05/20/2014 Findings: Narrowing and spurring at the 1st MTP joint noted. No significant hallux valgus. Plantar and posterior calcaneal spurs with heterotopic ossification associated with the plantar fascia. Vascular calcifications. Prominent dorsal spurring at the distal 1st metatarsal. Midfoot degenerative joint disease. Chronic deformity of the distal tibia. 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 Prominent calcaneal spurs with extensive chronic plantar fasciitis. Degenerative joint disease at the midfoot and chronic deformity of the distal tibia. Dictated by Reinaldo Juarez MD @ 05/01/2024 8:06:00 AM (Electronically Signed) Procedure Note Reinaldo Juarez MD - 05/01/2024 For Patients: As a result of the Cures Act, medical imagingexams and procedure reports are released immediately into your electronicmedical record. You may view this report before your referring provider.If you have questions, please contact your health care provider. Indication: Bunion Technique: Left foot 3 views Comparison: 05/20/2014 Findings: Narrowing and spurring at the 1st MTP joint noted. No significant halluxvalgus. Plantar and posterior calcaneal spurs with heterotopicossification associated with the plantar fascia. Vascular calcifications.Prominent dorsal spurring at the distal 1st metatarsal. Midfootdegenerative joint disease. Chronic deformity of the distal tibia. 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 Prominentcalcaneal spurs with extensive chronic plantar fasciitis. Degenerativejoint disease at the midfoot and chronic deformity of the distal tibia. Dictated by Reinaldo Juarez MD @ 05/01/2024 8:06:00 AM (Electronically Signed) Juan Ramon Saxena DPM GENERAL IMAGING * MR CARDIAC STRESS IMAGING WWO (04/14/2024 2:20 PM CDT) Anatomical Region Laterality Modality Magnetic Resonan ce 04/14/2024 1:31 PM CDT Narrative 04/14/2024 4:14 PM CDT ?[facility] ? CMR Report ??MRN: ? [id number] ?Name: ?REINALDO VIGIL ?: ?1950-Mar-17 ?Scan Date: ? Electronically signed by Modesta Magallon 16:14:02 VITALS ===== HEIGHT: 70 in ?(178 cm) WEIGHT: 257 lbs ?(117 kgs) BSA: 2.32 m^2 FINAL IMPRESSION ===== 1. Stress perfusion MRI: ??Stress and rest perfusion is normal. Normal absolute myocardial blood flow at peak stress, 2.4ml/min/g. Normal myocardial perfusion reserve (1.9). ?? 2. LV cavity size is normal. LV wall thickness is normal. LV systolic function is normal. Quantitative LVEF 57%. 3. Focal area of nonischemic hyperenhancement in the mid inferior segment. 4. No myocardial edema. Normal calculated myocardial ECV. 5. RV cavity size is normal. RV systolic function is normal. Quantitative RVEF 51 %. 6. No significant valvular, pericardial or aortic disease is appreciated. SUMMARY ===== LEFT VENTRICLE: LV cavity size is normal. LV wall thickness is normal. LV systolic function is normal. Quantitative LVEF 57 %. No myocardial edema. Normal calculated myocardial ECV. VIABILITY: Focal area of nonischemic hyperenhancement in the mid inferior segment. STRESS: Stress and rest perfusion is normal. Normal absolute myocardial blood flow at peak stress, 2.4ml/min/g. Normal myocardial perfusion reserve (1.9). ?? RIGHT VENTRICLE: RV cavity size is normal. RV systolic function is normal. Quantitative RVEF 51 %. LEFT ATRIUM: LA is moderately enlarged. RIGHT ATRIUM: RA is mildly enlarged. PERICARDIUM: There is no pericardial effusion. AORTIC VALVE: Sclerotic aortic valve. MITRAL VALVE: Mitral valve is mildly thickened. TRICUSPID VALVE: Tricuspid valve leaflets are normal. AORTIC ROOT: Mid ascending aorta is 36 x 37mm. ??Aortic root is 38mm. CORE EXAM ===== MEASUREMENTS ----- --- ?VOLUMETRIC ANALYSIS ? . . ? LV ?? Reference ?? RV ?? Reference ?? +-----+--------+-----+ +-----+ + EDV ml ? 168 ??(105-187) 202 ??(100-200) ? ml/m^2 ??72 ??(58-93) ?87 ??(52-98) ?? ESV ml ?73 ??(25-70) ?99 ??(16-76) ? ml/m^2 ??31 ??(13-35) ?43 ??(8-37) ? CO ? SV ?? ml ?95 ??(71-127) ?? 103 ??(70-138) ? ml/m^2 ??41 ??(39-63) ?44 ??(36-69) ?? EF ?? % ?57 ??(59-77) ?51 ??(57-83) ?? '-----+--------+-----+ +-----+ ' ?LV DIMENSIONS ?WALL THICKNESS - ANTEROSEPTAL: ??1.0 cm ?WALL THICKNESS - INFEROLATERAL: ??0.6 cm ?LV ANNMARIE: ??5.3 cm ?LA DIMENSIONS (LV SYSTOLE) ?VOLUME: ??121 ml ?VOLUME NORMALIZED: ??52.1 ml/m^2 ?EXTRACELLULAR VOLUME MEASUREMENT ?PRE-CONTRAST T1 MYOCARDIUM: ??1028 msec ?PRE-CONTRAST T1 LV CAVITY: ??1490 msec ?POST-CONTRAST T1 MYOCARDIUM: ??540 msec ?POST-CONTRAST T1 LV CAVITY: ??406 msec ?ECV: ??25 % ?IRON QUANTIFICATION ?MYOCARDIAL T2*: ??38 msec 17 SEGMENT ----- --- . ----- ------. Segments ? Wall Motion ?? Hyperenhancement Stress Perfusion Interpretation + + + + +----- ----- ------+ Base Anterior ? Normal/Hyper None ? Normal ? Base Anteroseptal ?? Normal/Hyper None ? Normal ? Base Inferoseptal ?? Normal/Hyper None ? Normal ? Base Inferior ? Normal/Hyper None ? Normal ? Base Inferolateral Normal/Hyper None ? Normal ? Base Anterolateral Normal/Hyper None ? Normal ? Mid Anterior ? Normal/Hyper None ? Normal ? Mid Anteroseptal ?? Normal/Hyper None ? Normal ? Mid Inferoseptal ?? Normal/Hyper None ? Normal ? Mid Inferior ? Normal/Hyper None ? Normal ? Mid Inferolateral ?? Normal/Hyper None ? Normal ? Mid Anterolateral ?? Normal/Hyper None ? Normal ? Apical Anterior ? Normal/Hyper None ? Normal ? Apical Septal ? Normal/Hyper None ? Normal ? Apical Inferior ? Normal/Hyper None ? Normal ? Apical Lateral ? Normal/Hyper None ? Normal ? [place] ? Normal/Hyper None ? Normal ? + + + + +----- ----- ------+ RV Segments ? Wall Motion ?? Hyperenhancement ? Interpretation + + + + +----- ----- ------+ RV Basal Anterior ? RV Basal Inferior ? RV Mid ? RV Apical ? ' + + + +----- ----- ------' ?FINDINGS ?LV SCAR SIZE (17 SEGMENT): ??0 % SCAN INFO ===== GENERAL ----- --- ?SCANNER ?SUPERVISOR FLOOR ASSEMBLY: ??SIEMENS ?MODEL: ??Avanto_fit ?CONTRAST AGENT ?TYPE: ??Gadavist ?GD CONCENTRATION: ??1.0 M ?VOLUME ADMINISTERED: ??11 ml ?DOSAGE: ??0.09 mmol/kg ?SETUP ?REFERRING PHYSICIAN: ??KYLEE CHEATHAM ?ATTENDING PHYSICIAN: ??KYLEE CHEN ===== Patient Account ?[id number] ICD10 Codes ?I48.91, I25.10, E78.2, I10 Report generated by [employer], a product of [employer] Procedure Note Modesta Magallon MD - 04/14/2024 [facility] CMR Report Name: REINALDO VIGIL : Scan Date: Electronically signed by Modesta Magallon 16:14:02 VITALS ===== HEIGHT: 70 in (178 cm) WEIGHT: 257 lbs (117 kgs) BSA: 2.32 m^2 FINAL IMPRESSION ===== 1. Stress perfusion MRI: Stress and rest perfusion is normal. Normalabsolute myocardial blood flow at peak stress, 2.4ml/min/g. Normal myocardial perfusion reserve (1.9). 2. LV cavity size is normal. LV wall thickness is normal. LV systolicfunction is normal. Quantitative LVEF 57%. 3. Focal area of nonischemic hyperenhancement in the mid inferior segment. 4. No myocardial edema. Normal calculated myocardial ECV. 5. RV cavity size is normal. RV systolic function is normal. QuantitativeRVEF 51 %. 6. No significant valvular, pericardial or aortic disease is appreciated. SUMMARY ===== LEFT VENTRICLE: LV cavity size is normal. LV wall thickness is normal. LVsystolic function is normal. Quantitative LVEF 57 %. No myocardial edema. Normal calculated myocardial ECV. VIABILITY: Focal area of nonischemic hyperenhancement in the mid inferiorsegment. STRESS: Stress and rest perfusion is normal. Normal absolute myocardialblood flow at peak stress, 2.4ml/min/g. Normal myocardial perfusion reserve (1.9). RIGHT VENTRICLE: RV cavity size is normal. RV systolic function is normal.Quantitative RVEF 51 %. LEFT ATRIUM: LA is moderately enlarged. RIGHT ATRIUM: RA is mildly enlarged. PERICARDIUM: There is no pericardial effusion. AORTIC VALVE: Sclerotic aortic valve. MITRAL VALVE: Mitral valve is mildly thickened. TRICUSPID VALVE: Tricuspid valve leaflets are normal. AORTIC ROOT: Mid ascending aorta is 36 x 37mm. Aortic root is 38mm. CORE EXAM ===== MEASUREMENTS ----- --- VOLUMETRIC ANALYSIS . . LV Reference RV Reference +-----+--------+-----+ +-----+ + EDV ml 168 (105-187) 202 (100-200) ml/m^2 72 (58-93) 87 (52-98) ESV ml 73 (25-70) 99 (16-76) ml/m^2 31 (13-35) 43 (8-37) CO SV ml 95 (71-127) 103 (70-138) ml/m^2 41 (39-63) 44 (36-69) EF % 57 (59-77) 51 (57-83) '-----+--------+-----+ +-----+ ' LV DIMENSIONS WALL THICKNESS - ANTEROSEPTAL: 1.0 cm WALL THICKNESS - INFEROLATERAL: 0.6 cm LV ANNMARIE: 5.3 cm LA DIMENSIONS (LV SYSTOLE) VOLUME: 121 ml VOLUME NORMALIZED: 52.1 ml/m^2 EXTRACELLULAR VOLUME MEASUREMENT PRE-CONTRAST T1 MYOCARDIUM: 1028 msec PRE-CONTRAST T1 LV CAVITY: 1490 msec POST-CONTRAST T1 MYOCARDIUM: 540 msec POST-CONTRAST T1 LV CAVITY: 406 msec ECV: 25 % IRON QUANTIFICATION MYOCARDIAL T2*: 38 msec 17 SEGMENT ----- --- . ----- ------. Segments Wall Motion Hyperenhancement Stress Perfusion Interpretation + + + + +----- ----- ------+ Base Anterior Normal/Hyper None Normal Base Anteroseptal Normal/Hyper None Normal Base Inferoseptal Normal/Hyper None Normal Base Inferior Normal/Hyper None Normal Base Inferolateral Normal/Hyper None Normal Base Anterolateral Normal/Hyper None Normal Mid Anterior Normal/Hyper None Normal Mid Anteroseptal Normal/Hyper None Normal Mid Inferoseptal Normal/Hyper None Normal Mid Inferior Normal/Hyper None Normal Mid Inferolateral Normal/Hyper None Normal Mid Anterolateral Normal/Hyper None Normal Apical Anterior Normal/Hyper None Normal Apical Septal Normal/Hyper None Normal Apical Inferior Normal/Hyper None Normal Apical Lateral Normal/Hyper None Normal Sherwood Normal/Hyper None Normal + + + + +----- ----- ------+ RV Segments Wall Motion Hyperenhancement Interpretation + + + + +----- ----- ------+ RV Basal Anterior RV Basal Inferior RV Mid RV Apical ' + + + +----- ----- ------' FINDINGS LV SCAR SIZE (17 SEGMENT): 0 % SCAN INFO ===== GENERAL ----- --- SCANNER SUPERVISOR FLOOR ASSEMBLY: SIEMENS MODEL: Avanto_fit CONTRAST AGENT TYPE: Gadavist GD CONCENTRATION: 1.0 M VOLUME ADMINISTERED: 11 ml DOSAGE: 0.09 mmol/kg SETUP REFERRING PHYSICIAN: KYLEE CHEATHAM ATTENDING PHYSICIAN: KYLEE CHEN ===== Patient Account [id number] ICD10 Codes I48.91, I25.10, E78.2, I10 Report generated by [employer], a product of [employer] Kylee Cheatham MB MR * HEMATOCRIT/HGB,ISTAT (04/14/2024 1:25 PM CDT) HEMATOCRIT, POCT 47.0 37.0 - 53.0 % 04/14/2024 1:29 PM CDT [facility] HEMOGLOBIN, POCT 16.0 13.5 - 17.5 g/dL 04/14/2024 1:29 PM CDT [facility] Blood BLOOD SPECIMEN / Unknown 04/14/2024 1:25 PM CDT 04/14/2024 1:29 PM CDT Kylee TORRES CHEMISTRY [facility] SENDOUT INTERNAL ZIP [id number] [place] [address] * SCAN-OPERATIVE/PROCEDURE REPORT (03/26/2024 12:00 AM CDT) Scanner OTHER * ANTI HCV (04/05/2006 3:49 PM CDT) ANTI HCV Non-reactiv e [facility] Blood specimen (specimen) BLOOD SPECIMEN / Unknown 04/05/2006 3:49 PM CDT 04/05/2006 3:46 PM CDT Narrative [facility] - 04/10/2006 1:42 PM CDT Testing Performed By [place], [place] Ford Ahuja MD SEND OUTS [facility] [address] [place] [address] from Last 3 Months or Most Recently Relevant to Health Maintenance Advance Directives Documents on File Type Date Recorded Patient Ore Grader Expl anation Healthcare Directive 10/03/2016 10:27 AM ZURI LILY ESQUEDA & CHADWICK LEV * Full Code (Latest Code Status on File) Date Activated Date Inactivated Comments 04/26/2021 12:58 PM 04/27/2021 12:28 PM Question Answer Comments Code Status Discussion: Not Discussed * Full Code Date Activated Date Inactivated Comments 05/29/2018 10:14 AM 05/29/2018 3:26 PM Care Teams Home Energy Auditor Relationship Specialty Start Date End Date Mikey White MD [address] [place] [address] PCP - General Family Practice 03/08/23 Lang Almazan MD Sleep Medicine 08/25/11 Vlad Salazar MD [address] [facility] [address] [place], [place] [id number] Otolaryngology ENT 08/25/11 Frod Ahuja MD [address] [facility] [address] [place] [address] Gastroenterology 01/21/13 [place] [address] [place] [address] Ophthalmology Surgery 01/21/13 Kylee Cheatham MBBS [address] [place] [address] Consulting Physician Cardiovascular Disease 05/17/18 Jazmyn Hay NP [address] [place] [address] Nurse Practitioner Cardiology - Electrophysiology 04/08/21 Anitha Harmon MD [address] [place] [id number] Cardiology Cardiovascular Disease 06/01/21 Surya Marquis MD [address] [place] [address] Cardiovascular Surgeon Cardiovascular Disease 07/20/21 Landy Kraus, DHEERAJ [address] [place] [address] Primary Care RN Care Management Family Practice 03/16/23 [place] [address] [place] [address] Urology Surgery - Urology 08/13/23 Aby Gramajo MD [address] [place] [address] Family Practice Family Practice 09/05/21 Michael Magallon MD Orthopedics Surgery - Orthopedics 07/20/21 Belen Larios, PT [address] [facility], [place] [address] Physical Therapist Physical Therapist 07/20/21
[2024-06-26] MEDS: SODIUM CHLORIDE 0.9 % (FLUSH) 10 ML SYRINGE IVF (08:20)
[2024-06-26] MEDS: OXYCODONE (CR) 10 MG TAB.ER.12H PO (08:20)
[2024-06-26] MEDS: LACTATED RINGERS 1000 ML 1,000 ML 100 ML IV ×3 (08:20→12:46)
[2024-06-26] MEDS: CELECOXIB 200 MG CAPSULE PO (08:20)
[2024-06-26] MEDS: ACETAMINOPHEN 500 MG TABLET 1000 MG PO ×2 (08:20→18:15)
[2024-06-26] MEDS: fentaNYL 100 MCG/2 ML inj IVP (09:21)
[2024-06-26] MEDS: MIDAZOLAM HCL 1 MG/ML inj IVP (09:21)
--- NOTE | 2024-06-26 09:22 | SUR.PREOP ---
TIME?OUT: 919? PT/RN/MDA?VERIFICATION?OF?SURGICAL?SITE,?PROCEDURE,?AND?CONSENT OBTAINED?PRIOR?TO?INVASIVE?PROCEDURE.
--- NOTE | 2024-06-26 09:59 | CRLHL7_ITS ---
For Patients: As a result of the Cures Act, medical imaging exams and procedure reports are released immediately into your electronic medical record. You may view this report before your referring provider. If you have questions, please contact your health care provider. Indication: Hip replacement surgery Technique: AP hip fluoroscopic images. Fluoroscopy time 91.5 seconds. Findings/Impression: Hardware from a right total hip arthroplasty is in satisfactory position. Dictated by Dm Juarez MD @ 06/27/2024 2:48:36 PM (Electronically Signed)
--- NOTE | 2024-06-26 10:17 | W.ANESCHARGE ---
Anesthesia Charges Start Date/Time Anesthesia Start Date: 06/26/24 Anesthesia Start Time: 10:06 Stop Date/Time Anesthesia Stop Date: 06/26/24 Anesthesia Stop Time: 13:20 Summary Extremes of Age - Over 70 or under 1: MDA
--- NOTE | 2024-06-26 10:18 | W.PM.NB ---
Nerve Block Nerve Block Time Seen by Provider: 09:24 Date Seen: 06/26/24 Type of block requested by surgeon for post-operative analgesia: YANDY/LFCN Side: right Time out performed: Yes Verification of patient name: Yes Verification of date of : Yes Site marking: site marked Name of person performing procedure: Efra Continuous monitoring Was continuous monitoring of O2 sat, B/P, cardiac catheterization technician, recorded every 15 minutes?: Yes Procedure Checklist: sterile prep, needles and gloves Ultrasound guided. Images saved: Yes Medications given in 5ml increments after negative aspiration: Ropivicaine %: 0.5 mL: 30 Needle gauge: 20 Decadron (mg): 10 Precedex (mcg): 25 Patient tolerated procedure well: Yes Additional comments: Needle noted below psoas tendon needle noted adjacent to LFCN Block Charges Block Charge (with Pro Fee): Other Periph Nerve Block Use of Ultrasound Machine for Block: Yes- US Guidance/pain block
[2024-06-26] MEDS: CEFAZOLIN 2 GM INJ IVP (10:20)
[2024-06-26] MEDS: TRANEXAMIC ACID 100 MG/ML INJ 1000 MG IV (10:20)
--- NOTE | 2024-06-26 12:18 | CRLHL7_ITS ---
For Patients: As a result of the Cures Act, medical imaging exams and procedure reports are released immediately into your electronic medical record. You may view this report before your referring provider. If you have questions, please contact your health care provider. Indication: POSTOP SYBIL Technique: AP hip centered pelvis and lateral view right hip Findings/Impression: Hardware from a right total hip arthroplasty is in satisfactory position. Bone alignment is normal. No sign of acute fracture. Postop changes are within normal limits. Dictated by Dm Juarez MD @ 06/27/2024 2:51:13 PM (Electronically Signed)
--- NOTE | 2024-06-26 12:20 | P.ORPRC_ITS ---
Procedure Note Date of procedure: 06/26/24 Procedure: PREOPERATIVE DIAGNOSIS: Right hip osteoarthritis POSTOPERATIVE DIAGNOSIS: Right hip osteoarthritis NAME OF OPERATION: Right total hip arthroplasty SURGEON: Donny Salvador MD [employer] [employer] OPERATOR: Alan George PA-C, AYANA [place] IMPLANTS: 1. [employer] # 56 sector ingrowth cup 2. 36 x 56 +4 neutral polyethylene 3. Actis # 6 standard collared ingrowth stem 4. 36 + 5 ceramic femoral head ANESTHESIA: General ESTIMATED BLOOD LOSS: 1500 cc COMPLICATIONS: None SPECIMENS: None DRAINS: None PREOPERATIVE ANTIBIOTICS: Ancef 2 grams INDICATIONS: The patient is a 74-year-old with a longstanding history of severe , unrelenting right hip pain secondary to end-stage right hip osteoarthritis. Despite appropriate nonoperative management, including activity modification, use of an assist device, anti-inflammatories, [id number] pain medication, physical therapy and injections, they continue to have pain and disability. Operative intervention was offered. The risks, benefits and expected outcomes were discussed in detail. These included but were not limited to: Infection, bleeding, injury to blood vessel or nerve, venous thromboembolism. All questions were answered to their satisfaction. Use of an administrative assistant coordinator was necessary throughout the case for patient positioning and safety, soft tissue retraction and closure. A modifier 22 should be added to this case. The patient's weight of 117 kg with a BMI of 37 made the exposure quite difficult and more than doubled the time typically required to complete the case. PROCEDURE: The patient was placed supine on the [place] table. General anesthesia was administered. The administrative assistant coordinator made sure the patient was properly positioned. The right hip was prepped and draped in the usual sterile fashion. The image intensifier was brought in for a perfect AP pelvis and a perfect double tear drop AP view of each hip which were used for intraoperative templating with our fluoroscopic guide. An oblique incision was made 3 cm distal and 3 cm lateral to the anterior superior iliac spine. The administrative assistant coordinator retracted the soft tissues to protect them. Subcutaneous dissection was taken with electrocautery to the superficial fascia. The fascia was divided in line with the incision. Blunt dissection was carried medially to the tensor fascia linh and sartorius interval. Deep dissection was carried with electrocautery. The circumflex vessels were ca uterized and divided. The capsule was exposed and then divided in a T-fashion, tagged with #1 Ethibond sutures. Retractors were placed in the joint, held by the administrative assistant coordinator. The corkscrew was placed in the femoral head. The neck cut was made in the subcapital region. We made a second neck cut more distal. The napkin ring of bone was removed. The femoral head was removed intact. Acetabular retractors were placed, held by the administrative assistant coordinator. The labrum was sharply debrided. The capsule was released. The 43 mm reamer was used to the true medial wall. We then enlarged in 2 mm increments using the image intensifier for our reamer placement. We impacted the cup which had excellent purchase. We placed the polyethylene. Attention was then turned to the proximal femur. The limb was placed in 140 degrees of external rotation, maximum extension and adduction. A significant amount of time was spent releasing the capsule to allow us to deliver the femur into the wound and complete the femoral side safely. Retractors were held by the administrative assistant coordinator throughout the femoral preparation. The box person and canal finder were used. Broaches were used to a stable size. The calcar reamer was used. Trial components were placed. The hip was reduced and was found to be stable with appropriate soft tissue tension. Length and offset had been nicely restored using the image intensifier and our fluoroscopic guide. Trial components were removed. The stem was impacted. We placed the femoral head. Again, the hip was reduced and was found to be stable with appropriate soft tissue tension. Length and offset had been nicely restored. The administrative assistant coordinator did a three minute dilute Betadine solution soak. The administrative assistant coordinator irrigated the wound with 3 liters of normal saline via pulse lavage. The a ssistant repaired the anterior capsule with a #1 Vicryl and our previously placed Ethibond sutures. The administrative assistant coordinator closed the fascia over the tensor fascia linh with a #1 PDO Stratafix, subcutaneous tissues with 2-0 Vicryl, skin with a running 3-0 Stratafix and glue. A dry dressing was applied by the administrative assistant coordinator. Sponge and needle counts were correct x 2. The patient tolerated the procedure well; there were no apparent complications. They were awakened and extubated in the operating room, sent to the Post-Anesthesia Care Unit in satisfactory condition. PLAN: 1. The patient will be mobilized with physical therapy, weight-bearing as tolerates 2. The usual dose of Eliquis can be restarted 3. The patient will be discharged once medically appropriate
--- NOTE | 2024-06-26 13:26 | P.ANES_ITS ---
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
[2024-06-26] MEDS: MEPERIDINE 25 MG/ML INJ 12.5 MG IVP (13:33)
[2024-06-26] MEDS: HYDROmorphone 0.5 mg/0.5 ml inj IVP ×2 (13:38→14:14)
[2024-06-26 14:34] LABS: Hemoglobin* 13.7 gm/dL (13.5-17.5)
--- NOTE | 2024-06-26 15:30 | PM.IMCN1 ---
Date of Consult Consult date: 06/26/24 Primary Care Provider: Mikey White MD Consult Narrative Reason for consult: MEDICAL MANAGEMENT Narrative: Dm Vigil is a 74 year old male with past medical history of hypertension, hyperlipidemia, paroxysmal AFib status post ablation 2020 on apixaban, non obstructive coronary heart disease, asthma, HEMA on CPAP and BPH who was admitted to the hospital for an elective right total hip replacement. Patient's last Eliquis dose was on Sunday night, ortho resumed his Eliquis tonight after his surgery. History was taken from the patient himself postop and his , they mentioned that after ablation he did not have any arrhythmias. Patient is able to do his ADLs, he uses a cane for ambulation. Surgery report mentions 1500 mL blood loss during his surgery. Patient is hemodynamically stable, heart rate in the 80s, normal sinus rhythm, blood pressure, systolic, low 100s. Pain controlled with hydromorphone. Review of Systems Status of ROS: Reports: 6 or more systems reviewed and unremarkable except as noted in History and below [facility] Medical History (Updated 06/26/24 @ 17:15 by Saba Longoria MD) Paroxysmal atrial fibrillation (04/05/20) ?I48.0 - Paroxysmal atrial fibrillation (ICD-10) Obstructive sleep apnea syndrome (03/07/24) ?G47.33 - Obstructive sleep apnea (adult) (pediatric) (ICD-10) Nodular prostate without urinary obstruction (03/18/08) ?N40.2 - Nodular prostate without lower urinary tract symptoms (ICD-10) Moderate persistent asthma without complication (07/17/07) ?J45.40 - Moderate persistent asthma, uncomplicated (ICD-10) Hypertensive disorder (03/07/24) ?I10 - Essential (primary) hypertension (ICD-10) Hyperlipidemia (08/30/00) ?E78.5 - Hyperlipidemia, unspecified (ICD-10) Fatty liver (08/09/06) ?K76.0 - Fatty (change of) liver, not elsewhere classified (ICD-10) ASHD (arteriosclerotic heart disease) (06/27/18) ?I25.10 - Atherosclerotic heart disease of [place] coronary artery without angina pectoris (ICD-10) Acid reflux (03/07/24) ?K21.9 - Gastro-esophageal reflux disease without esophagitis (ICD-10) Sepsis due to urinary tract infection ?A41.9 - Sepsis, unspecified organism (ICD-10) ?N39.0 - Urinary tract infection, site not specified (ICD-10) Strain of left shoulder ?S46.912A - Strain of unspecified muscle, fascia and tendon at shoulder and upper arm level, left arm, initial encounter (ICD-10) Pneumonia ?J18.9 - Pneumonia, unspecified organism (ICD-10) Asthma ?J45.909 - Unspecified asthma, uncomplicated (ICD-10) Arthritis of ankle joint ?M19.079 - Primary osteoarthritis, unspecified ankle and foot (ICD-10) Surgical History (Updated 06/26/24 @ 17:11 by Saba Longoria MD) S/P trigger finger release ?Z98.890 - Other specified postprocedural states (ICD-10) History of repair of congenital cleft palate ?Z87.730 - Personal history of (corrected) cleft lip and palate (ICD-10) History of arthroscopy of left shoulder (06/21/17) ?Z98.890 - Other specified postprocedural states (ICD-10) History of arthroscopy of right shoulder (06/13/18) ?Z98.890 - Other specified postprocedural states (ICD-10) History of carpal tunnel surgery of left wrist (05/31/06) ?Z98.890 - Other specified postprocedural states (ICD-10) History of carpal tunnel surgery of right wrist (04/12/06) ?Z98.890 - Other specified postprocedural states (ICD-10) History of lumbar fusion ?Z98.1 - Arthrodesis status (ICD-10) H/O hernia repair ?Z98.890 - Other specified postprocedural states (ICD-10) ?Z87.19 - Personal history of other diseases of the digestive system (ICD-10) H/O cardiac radiofrequency ablation ?Z98.890 - Other specified postprocedural states (ICD-10) History of total right knee replacement (02/10/19) ?Z96.651 - Presence of right artificial knee joint (ICD-10) Social History What is your current living situation?: I presently have a place to live Problems where you live: no known problems In the past 12 months, utilities in danger of being shut off: no In past 12 months, lack of transportation kept you from medical appts, meetings, work, or getting things needed for daily living: no In the past 12 mos, have been you worried that your food would run out before you had money to buy more?: never true In the past 12 mos, the food you bought just didn't last and you didn't have money to buy more?: never true Highest level of school completed/degree received: some college, no degree Smoking Status: Never smoker Do you use any of these nicotine containing products: None Second hand tobacco smoke exposure: No How often do you have a drink containing alcohol: never How often do you have six or more drinks on one occasion: Never AUDIT-C Alcohol total score: 0 Non-prescribed substance use: denies use Caffeine: Yes (Tea) How often does anyone, including family, friends and others, physically hurt you: never How often does anyone, including family, friends and others, insult or talk down to you: never How often does anyone, including family, friends and others, threaten you with harm: never How often does anyone, including family, friends and others, scream or curse at you: never service: Yes Meds Home Medications and Allergies Home Medications ?Medication ?Instructions ?Recorded ?Confirmed ?Type acetaminophen 650 mg 650 mg PO Q12H 03/14/24 06/26/24 History tablet,extended release (Tylenol 8 Hour) albuterol sulfate 90 mcg/actuation 2 puff inhalation Q4H PRN dyspnea 03/14/24 06/26/24 History aerosol inhaler amlodipine 10 mg tablet 10 mg PO DAILY 03/14/24 06/26/24 History apixaban 5 mg tablet (Eliquis) 5 mg PO BID 03/14/24 06/26/24 History atorvastatin 20 mg tablet 20 mg PO HS 03/14/24 06/26/24 History ezetimibe 10 mg tablet 10 mg PO DAILY 03/14/24 06/26/24 History fluticasone 250 mcg-salmeterol 50 1 ea inhalation BID 03/14/24 06/26/24 History mcg/dose blistr powdr for inhalation (Wixela Inhub) fosinopril 40 mg tablet 40 mg PO DAILY 03/14/24 06/26/24 History ipratropium bromide 0.02 % 2.5 ml inhalation QID PRN dyspnea 03/14/24 06/26/24 History solution for inhalation metoprolol succinate 25 mg 25 mg PO DAILY 03/14/24 06/26/24 History tablet,extended release 24 hr montelukast 10 mg tablet 10 mg PO DAILY 03/14/24 06/26/24 History pantoprazole 40 mg tablet,delayed 40 mg PO Q48H 03/14/24 06/26/24 History release tamsulosin 0.4 mg capsule 0.4 mg PO DAILY 03/14/24 06/26/24 History cholecalciferol (vitamin D3) 50 50 mcg PO DAILY 06/23/24 06/26/24 History mcg (2,000 unit) tablet lactobacillus combination no.9 4 4,000 mmu cells PO DAILY 06/23/24 06/26/24 History billion cell capsule vibegron 75 mg tablet (Gemtesa) 75 mg PO DAILY 06/23/24 06/26/24 History Allergies Allergy/AdvReac Type Severity Reaction Status Date / Time penicillin V Allergy Mild Rash Verified 06/26/24 16:50 Chlorpheniramine-Phenylpropan Allergy Uncoded 06/26/24 16:50 Exam Narrative: Exam Narrative: Physical exam GENERAL: On Cpap, no acute distress. HEAD AND NECK: Atraumatic, normocephalic CARDIOVASCULAR: RRR. Normal S1, S2. No murmurs. RESPIRATORY: Clear to auscultation B/L. Good air entry B/L. No wheezes or rhonchi. GASTROINTESTINAL: Obese, not tender to palpation. NEUROLOGY: Alert, awake, oriented X 3. Normal speech. MSK: Right hip wound, clean dressing. PSYCH: Normal mood, normal affect. Const: Vital Signs, click to edit/add: Vital Signs - 24 hr 06/26/24 08:01 06/26/24 09:21 06/26/24 09:25 Temperature 98.8 F Pulse Rate 79 79 77 Pulse Rate [Left P ulse Oximeter] Respiratory Rate 16 16 16 Blood Pressure 135/76 140/84 H 131/80 Blood Pressure [Ri ght Arm] Pulse Oximetry 95 95 91 Oxygen Delivery Me thod Room Air Nasal Cannula Nasal Cannula Oxygen Flow Rate 2 3 06/26/24 09:30 06/26/24 09:40 06/26/24 13:15 Temperature 96.5 F L Pulse Rate 74 71 90 Pulse Rate [Left P ulse Oximeter] Respiratory Rate 16 16 16 Blood Pressure 111/70 113/74 125/62 Blood Pressure [Ri ght Arm] Pulse Oximetry 92 93 93 Oxygen Delivery Me thod Nasal Cannula Nasal Cannula Room Air Oxygen Flow Rate 3 3 0 06/26/24 13:20 06/26/24 13:25 06/26/24 13:30 Temperature 97.8 F Pulse Rate 94 93 90 Pulse Rate [Left P ulse Oximeter] Respiratory Rate 16 16 16 Blood Pressure 120/88 123/62 123/62 Blood Pressure [Ri ght Arm] Pulse Oximetry 93 95 95 Oxygen Delivery Me thod Nasal Cannula Nasal Cannula Nasal Cannula Oxygen Flow Rate 0 2 2 06/26/24 13:35 06/26/24 13:40 06/26/24 13:45 Temperature Pulse Rate 89 88 87 Pulse Rate [Left P ulse Oximeter] Respiratory Rate 16 16 16 Blood Pressure 122/69 123/62 102/59 L Blood Pressure [Ri ght Arm] Pulse Oximetry 95 95 96 Oxygen Delivery Me thod Nasal Cannula Nasal Cannula Nasal Cannula Oxygen Flow Rate 2 2 2 06/26/24 14:00 06/26/24 14:00 06/26/24 14:00 Temperature 96.3 F L 96.3 F L Pulse Rate 93 Pulse Rate [Left P ulse Oximeter] 93 Respiratory Rate 16 16 12 Blood Pressure 107/57 L Blood Pressure [Ri ght Arm] 107/59 L Pulse Oximetry 93 90 90 Oxygen Delivery Me thod Room Air Room Air Room Air Oxygen Flow Rate 06/26/24 14:33 06/26/24 14:35 06/26/24 14:48 Temperature Pulse Rate 109 H 88 Pulse Rate [Left P ulse Oximeter] Respiratory Rate 12 12 12 Blood Pressure 109/58 L 101/64 Blood Pressure [Ri ght Arm] Pulse Oximetry 89 89 94 Oxygen Delivery Me thod Room Air Room Air CPAP Oxygen Flow Rate 06/26/24 15:00 Temperature Pulse Rate 81 Pulse Rate [Left P ulse Oximeter] Respiratory Rate 12 Blood Pressure 102/60 Blood Pressure [Ri ght Arm] Pulse Oximetry 95 Oxygen Delivery Me thod CPAP Oxygen Flow Rate Labs Labs: Short CBC 06/26/24 Range/Units 14:28 Hgb 13.7 (13.5-17.5) gm/dL Assessment and Plan Assessment and plan (1) Status post total hip replacement, right: Problem comment: -Patient is able to do his ADLs at home, he uses a cane for ambulation. -PT, OT evaluate and treat orders, for early ambulation. Status: Acute (2) Blood loss, postoperative: Problem comment: -Surgery report mentions 1500 mL blood loss during his surgery. -Patient is hemodynamically stable -Hb pre-op 15.7 -> 13.7 immediately postop. -follow-up labs. Status: Acute (3) Paroxysmal atrial fibrillation: Problem comment: -paroxysmal AFib status post ablation 2020 on apixaban. -Patient's last Eliquis dose was on Sunday night, ortho resumed his Eliquis tonight after his surgery. -History was taken from the patient himself postop and his , they mentioned that after ablation he did not have any arrhythmias. Status: Acute (4) Obstructive sleep apnea syndrome: Problem comment: -on CPAP Status: Chronic (5) Moderate persistent asthma without complication: Problem comment: On albuterol, ipratropium inhalers. On montelukast 10 mg daily. Status: Chronic (6) Hypertensive disorder: Problem comment: -we will hold his blood pressure medications for tonight as his blood pressure is soft postop. -home meds are metoprolol succinate which we will resume tomorrow morning on parameters. Other meds are amlodipine and fosinopril. Status: Chronic (7) Hyperlipidemia: Problem comment: On a statin and ezetimibe Status: Chronic (8) Fatty liver: Status: Chronic (9) ASHD (arteriosclerotic heart disease): Problem comment: History of heart catheterization, no stents. Status: Chronic (10) Acid reflux: Problem comment: On PPI at home Status: Chronic (11) Obesity: Status: Chronic (12) Osteoarthritis of right hip: Problem comment: Severe, approaching [id number] Status: Chronic (13) Nodular prostate without urinary obstruction: Problem comment: -On Gemtesa and tamsulosin Status: Chronic Total Time Spent Total Time Spent: Time spent: Today I spent 75 minutes seeing the patient, discussing the patient with ER staff, reviewing [facility] and [facility] notes/diagnostics, discussing the care plan with our care time that includes social work, PT/OT, pharmacy, RT and documenting my impressions and plan in the medical record.
[2024-06-26] MEDS: LACTATED RINGERS 1000 ML 1,000 ML 75 ML IV (18:16)
[2024-06-26] MEDS: CEFAZOLIN 2 GM in 0.9 % SODIUM CHLORIDE Mini-bag 100 ML IVPB (18:17)
[2024-06-26 19:00] LABS: Hemoglobin* 13.2 gm/dL (13.5-17.5)
[2024-06-26] MEDS: SENNOSIDES 1 TAB TABLET 2 TAB PO (21:18)
[2024-06-26] MEDS: APIXABAN 5 MG TABLET PO (21:19)
[2024-06-26] MEDS: ATORVASTATIN 10 MG TABLET 20 MG PO (21:19)
[2024-06-26] MEDS: OXYCODONE 5 MG TABLET PO (21:22)
[2024-06-27 00:20] VITALS: BP 120/66; PULSE 91; PULSE 94; RESP 18; TEMP 37.2; O2SAT 95
[2024-06-27] MEDS: ACETAMINOPHEN 500 MG TABLET 1000 MG PO ×2 (00:20→06:30)
[2024-06-27] MEDS: CEFAZOLIN 2 GM in 0.9 % SODIUM CHLORIDE Mini-bag 100 ML IVPB (01:46)
[2024-06-27 03:00] VITALS: BP 160/87; PULSE 104; RESP 18; TEMP 36.6; O2SAT 95
[2024-06-27] MEDS: OMEPRAZOLE 20 MG CAPSULE DR PO (06:30)
[2024-06-27 06:45] LABS: Hematocrit 34.4 % (37.0-53.0); Hemoglobin* 11.5 gm/dL (13.5-17.5); Immature Granulocytes Pct Auto 0.3 %; Lymphocytes Percent Auto 6.9 % (20-44); Mean Corpuscular HGB Conc 33 gm/dL (32-36); Mean Corpuscular Hemoglobin 30 pg (26-34); Mean Corpuscular Volume 90 fL (80-100); Neutrophils Percent Auto 86.8 % (42.0-72.0); Platelet Count* 170 K/uL (140-440); RDW Coefficient of Variation % 13.1 % (11.5-15.5); Red Blood Count 3.81 m/uL (4.30-5.90); White Blood Count* 16.93 K/uL (4.50-11.00)
[2024-06-27 06:49] LABS: Slide Review Reflex No
[2024-06-27 07:13] LABS: Sodium* 134 mmol/L (135-149)
[2024-06-27 07:14] LABS: Potassium* 4.7 mmol/L (3.6-5.1)
[2024-06-27 07:17] LABS: Blood Urea Nitrogen* 32 mg/dL (7-30); Creatinine* 1.2 mg/dL (0.5-1.5); Est. Creatinine Clearance* 54.07; Estimated Glomerular Filt Rate 63 ml/min
--- NOTE | 2024-06-27 07:41 | PC.NURSE ---
END OF SHIFT NOTE: PT PLEASANT AND COOPERATIVE WITH CARES. A&Ox4. DENIES CP, SOB, N/V. AMBULATES WITH A1 AND WALKER. VSS ON RA; AFEBRILE. DRESSING TO RIGHT HIP IS C/D/I. ACTIVE ICE TO RIGHT HIP. IV TO LEFT HAND IS PATENT AND SALINE LOCKED. TELE READS NSR. CALL LIGHT WITHIN PT?S REACH.?
--- NOTE | 2024-06-27 07:41 | PM.ORPN ---
Subjective Subjective Time Seen by Provider: 06:30 Date Seen: 06/27/24 Principal diagnosis: Day 1 s/p right total hip arthroplasty Interval history: Dm is doing well and resting comfortably in his recliner. During his surgery, Dm's estimated blood loss was 1500 cc. This morning, he is symptomatic. Denies: lightheadedness, dizziness while seated and with transfers. Denies: chest pain, SOB, fever, chills, numbness/tingling distally. Denies bowel movement postoperatively, but admits to flatulence. Patient reports he did not sleep at all last night and is eager to be discharged to home. Outpatient PT scheduled to begin Sunday. Ortho Exam Narrative Exam Narrative: Incision/Dressing: Dressing appears clean and dry. No drainage present. Mepilex intact. Right hip appears moderately swollen but supple with no obvious erythema, fluctuance or excessive warmth. No ecchymosis or erythematous streaking. Warmth around the wound is appropriate. Ice is being utilized as needed. CMS: Intact distally with 2+ Dorsalis pedis and Posterior Tibial pulses. Confirmed sensation distally. Intact straight leg raise. Calf: Bilateral calves are supple, with no swelling, pain, tenderness, erythema, discoloration or coolness to the touch. Constitutional: Patient is alert and oriented x3. Patient is in no acute distress and converses without labored breathing. Patient is able to make decisions and demonstrates good insight. Patient is pleasant and cooperative. Affect is full range and appropriate for the circumstances. Const Vital Signs, click to edit/add: Vital Signs - 24 hr 06/26/24 08:01 06/26/24 09:21 06/26/24 09:25 Temperature 98.8 F Pulse Rate 79 79 77 Pulse Rate [Left Pulse Oximeter] Respiratory Rate 16 16 16 Blood Pressure 135/76 140/84 H 131/80 Blood Pressure [Left Arm] Blood Pressure [Right Arm] Pulse Oximetry 95 95 91 Oxygen Delivery Method Room Air Nasal Cannula Nasal Cannula Oxygen Flow Rate 2 3 06/26/24 09:30 06/26/24 09:40 06/26/24 13:15 Temperature 96.5 F L Pulse Rate 74 71 90 Pulse Rate [Left Pulse Oximeter] Respiratory Rate 16 16 16 Blood Pressure 111/70 113/74 125/62 Blood Pressure [Left Arm] Blood Pressure [Right Arm] Pulse Oximetry 92 93 93 Oxygen Delivery Method Nasal Cannula Nasal Cannula Room Air Oxygen Flow Rate 3 3 0 06/26/24 13:20 06/26/24 13:25 06/26/24 13:30 Temperature 97.8 F Pulse Rate 94 93 90 Pulse Rate [Left Pulse Oximeter] Respiratory Rate 16 16 16 Blood Pressure 120/88 123/62 123/62 Blood Pressure [Left Arm] Blood Pressure [Right Arm] Pulse Oximetry 93 95 95 Oxygen Delivery Method Nasal Cannula Nasal Cannula Nasal Cannula Oxygen Flow Rate 0 2 2 06/26/24 13:35 06/26/24 13:40 06/26/24 13:45 Temperature Pulse Rate 89 88 87 Pulse Rate [Left Pulse Oximeter] Respiratory Rate 16 16 16 Blood Pressure 122/69 123/62 102/59 L Blood Pressure [Left Arm] Blood Pressure [Right Arm] Pulse Oximetry 95 95 96 Oxygen Delivery Method Nasal Cannula Nasal Cannula Nasal Cannula Oxygen Flow Rate 2 2 2 06/26/24 14:00 06/26/24 14:00 06/26/24 14:00 Temperature 96.3 F L 96.3 F L Pulse Rate 93 Pulse Rate [Left Pulse Oximeter] 93 Respiratory Rate 16 16 12 Blood Pressure 107/57 L Blood Pressure [Left Arm] Blood Pressure [Right Arm] 107/59 L Pulse Oximetry 93 90 90 Oxygen Delivery Method Room Air Room Air Room Air Oxygen Flow Rate 06/26/24 14:33 06/26/24 14:35 06/26/24 14:48 Temperature Pulse Rate 109 H 88 Pulse Rate [Left Pulse Oximeter] Respiratory Rate 12 12 12 Blood Pressure 109/58 L 101/64 Blood Pressure [Left Arm] Blood Pressure [Right Arm] Pulse Oximetry 89 89 94 Oxygen Delivery Method Room Air Room Air CPAP Oxygen Flow Rate 06/26/24 15:00 06/26/24 15:30 06/26/24 16:00 Temperature 97 F L Pulse Rate 81 81 86 Pulse Rate [Left Pulse Oximeter] Respiratory Rate 12 12 12 Blood Pressure 102/60 100/56 L 101/58 L Blood Pressure [Left Arm] Blood Pressure [Right Arm] Pulse Oximetry 95 95 95 Oxygen Delivery Method CPAP CPAP CPAP Oxygen Flow Rate 06/26/24 16:30 06/26/24 17:00 06/26/24 18:00 Temperature Pulse Rate 81 87 87 Pulse Rate [Left Pulse Oximeter] Respiratory Rate 12 12 12 Blood Pressure 100/60 106/65 117/68 Blood Pressure [Left Arm] Blood Pressure [Right Arm] Pulse Oximetry 95 95 95 Oxygen Delivery Method CPAP Room Air Room Air Oxygen Flow Rate 2 06/26/24 18:43 06/26/24 19:00 06/27/24 00:20 Temperature 98 F Pulse Rate 87 87 91 Pulse Rate [Left Pulse Oximeter] Respiratory Rate 12 Blood Pressure 118/67 Blood Pressure [Left Arm] Blood Pressure [Right Arm] Pulse Oximetry 95 Oxygen Delivery Method Room Air Oxygen Flow Rate 06/27/24 00:20 06/27/24 00:20 06/27/24 00:20 Temperature 98.9 F Pulse Rate Pulse Rate [Left Pulse Oximeter] 94 94 Respiratory Rate 18 18 18 Blood Pressure Blood Pressure [Left Arm] 120/66 Blood Pressure [Right Arm] Pulse Oximetry 95 95 Oxygen Delivery Method Room Air CPAP Room Air CPAP Oxygen Flow Rate 06/27/24 03:00 Temperature 97.8 F Pulse Rate Pulse Rate [Left Pulse Oximeter] 104 H Respiratory Rate 18 Blood Pressure Blood Pressure [Left Arm] 160/87 H Blood Pressure [Right Arm] Pulse Oximetry 95 Oxygen Delivery Method Room Air CPAP Oxygen Flow Rate Assessment and Plan Assessment and plan (1) Status post total hip replacement, right: Problem details: -Patient is able to do his ADLs at home, he uses a cane for ambulation. -PT, OT evaluate and treat orders, for early ambulation. Status: Acute (2) Blood loss, postoperative: Problem details: -Surgery report mentions 1500 mL blood loss during his surgery. -Patient is hemodynamically stable -Hb pre-op 15.7 -> 13.7 immediately postop. -follow-up labs. Status: Acute Assessment and Plan: - Complete 23 hour perioperative antibiotics. - PT/OT consults for education and assistance. - Weight bear as tolerated with a walker for assistance. - Prescribed analgesics as needed. Patient is content with current narcotic medications. Minimize narcotic pain medication use; wean off and discontinue as soon as possible. - DVT prophylaxis: resume his Eliquis. Also, frequent ambulation and ankle pumps when sedentary. - Social consult for discharge planning. - Anticipate patient will be discharged to home possibly today, dependent upon how Dm does with PT and OT and if he remains asymptomatic and hemodynamically stable. - Return to clinic in 1 week for a wound check with Alan George PA-C. Mepilex dressing will be removed at this appointment. Remove sooner if dressing becomes saturated. - Return to clinic in [address] Salvador. - Phone Orthopedics with any questions or concerns. [phone]
[2024-06-27 07:50] VITALS: BP 131/75; PULSE 86; PULSE 87; RESP 16; TEMP 36.6; O2SAT 94
[2024-06-27] MEDS: OXYCODONE 5 MG TABLET PO (08:06)
[2024-06-27] MEDS: EZETIMIBE 10 MG TABLET PO (08:34)
[2024-06-27] MEDS: TAMSULOSIN HCL 0.4 MG CAPSULE PO (08:34)
[2024-06-27] MEDS: METOPROLOL SUCCINATE (XL) 25 MG TAB PO (08:35)
[2024-06-27] MEDS: MONTELUKAST 10 MG TABLET PO (08:35)
[2024-06-27] MEDS: SENNOSIDES 1 TAB TABLET 2 TAB PO (08:35)
[2024-06-27] MEDS: APIXABAN 5 MG TABLET PO (08:35)
[2024-06-27] MEDS: LACTOBACILLUS ACIDOPHILUS 1 TABLET 1 TAB PO (08:35)
--- NOTE | 2024-06-27 12:26 | PC.NURSE ---
Discharge: Patient pleasant and cooperative. Patient vitally stable, lung clear, BS WNL, IV removed, catheter intact. Patient rates right hip pain at most 3/10, 10 mg of oxy given once before therapy. Patient right hip dressing C/D/I. Patient SBA/Walker. Patient tolerating regular diet and urinating well. Tele=NSR. Patient signed belongings sheet and discharge paperwork. Patient and spouse had no further questions regarding discharge. Patient left the floor by wheelchair to home with spouse at 1126.
== END 2024-06-27 11:26 | disposition home or self-care (01) ==
LOC: OR 07:34 → MEDSURG 07:37
PROVIDERS: Physician Assistant; PCP Family Medicine; Visit Provider Orthopaedic Surgery
PROC: (CPT 27130; principal; 2024-06-26 10:00)
DX: M16.11 Unilateral primary osteoarthritis, right hip (principal); G89.18 Other acute postprocedural pain; D62 Acute posthemorrhagic anemia; G47.33 Obstructive sleep apnea (adult) (pediatric); Z99.89 Dependence on other enabling machines and devices; I10 Essential (primary) hypertension; J45.40 Moderate persistent asthma, uncomplicated; K21.9 Gastro-esophageal reflux disease without esophagitis; E66.9 Obesity, unspecified; Z68.37 Body mass index [BMI] 37.0-37.9, adult; K76.0 Fatty (change of) liver, not elsewhere classified; I48.0 Paroxysmal atrial fibrillation; Z79.01 Long term (current) use of anticoagulants; N40.0 Benign prostatic hyperplasia without lower urinary tract symptoms; I25.10 Atherosclerotic heart disease of native coronary artery without angina pectoris; E78.5 Hyperlipidemia, unspecified
CPT/HCPCS: 27130; 01214; 36415; 64450; 73501; 73502; 76942; 82565; 84132; 84295; 84520; 85018; 85025; 86850; 86900; 86901; 97110; 97116; 97161; 97165; 99100; A9270; C1776; J0690; J1100; J1170; J2175; J2250; J2371; J2704; J2795; J3010; J3490; J7120

== ENCOUNTER 2024-08-27 09:30 | Outpatient (RCR) | payer MEDICARE, SELFPAY ==
--- NOTE | 2024-06-03 15:36 | PT.OPE ---
PT Sam Outpatient Eval PT SABINE Outpatient Eval Start: 05/29/24 13:59 Freq: Status: Active Protocol: Document 06/02/24 15:06 LSL (Rec: 06/03/24 15:33 LSL [id number]) E-signed By Belen Larios PT Physical Therapy Outpatient Evaluation Insurance Information Recert Due Date 09/01/24 Insurance Name Medicare B,Other; See Comments Insurance Information/Comments AARP Medicare Options Medical Diagnosis Unilateral primary OA R hip M16.11 Treating Diagnosis pain, weakness, impaired gait, impaired ROM Referring MD Magallon Subjective Subjective Pt. reports his R hip pain became unbearable over the past winter while in [place] and he received an injection in March and this has relieved a significant amount of pain and made walking bearable. He hopes to be able to ride his motorcycle again when he gets to [place]. Date of Last Physician Visit 04/17/24 Current Work Status Retired Precautions Treatment Precautions/Contraindications S/P trigger finger release Z98.890 - Other specified postprocedural states (ICD-10) History of repair of congenital cleft palate Z87.730 - Personal history of (corrected) cleft lip and palate (ICD-10) History of arthroscopy of left shoulder (06/21/17) Z98.890 - Other specified postprocedural states (ICD-10) History of arthroscopy of right shoulder (06/13/18) Z98.890 - Other specified postprocedural states (ICD-10) History of carpal tunnel surgery of left wrist () Z98.890 - Other specified postprocedural states (ICD-10) History of carpal tunnel surgery of right wrist () Z98.890 - Other specified postprocedural states (ICD-10) History of lumbar fusion Z98.1 - Arthrodesis status ( ICD-10) H/O hernia repair Z98.890 - Other specified postprocedural states (ICD-10) Z87.19 - Personal history of other diseases of the digestive system (ICD-10) H/O cardiac radiofrequency ablation Z98.890 - Other specified postprocedural states (ICD-10) History of total right knee replacement (02/10/19) Z96.651 - Presence of right artificial knee joint (ICD-10) Weight Bearing Status Full Weight Bearing Therapy Limitations/Systems Review Other Medical Problem Objective Range of Motion AROM R hip flexion 90, extension - 12, abduction 28, IR 8, ER 35 Strength R quads and HS 5/5 R hip flexor 5/5, IR 5/5, ER 5 /5, abduction 3+/5, extension 3+/5 Balance & Gait SLB L 9 sec, R 15 sec ( multiple attempts on R) Posture Slight trunk flexion, lacks hip extension Assessment Assessment/Impression Pt. is a 74 y/o male here for his pre-op assessment and instruction for R anterior SYBIL . He has significant loss of IR and weakness in the gluts. He will work on his exercises for the next few weeks prior to his surgery to work on ROM and strength and post operative treatment will consist of therex, NM re-ed, manual therapy with modalities prn for pain and swelling management. Primary Functional Limitations walking, straddling motorcycle , using leg as kickstand while riding motorcycle Plan of Care Rehabilitation Potential Excellent Physical Therapy Goals SHORT TERM GOALS: (3 weeks) 1. Pt. able to independently don/doff pants/socks. 2. Pt. able to get in/out of car independently. 3. Pt. able to ambulate 200 feet for community ambulation with SPC. DATA REPORT ANALYST GOALS: (8 weeks) 1. Pt. to have 5/5 hip strength to allow good gait mechanics and ability to ascend/descend stairs safely. 2. Pt. able to ambulate independently with pain less thna 2/10 for up to 20 minutes . 3. Pt. to have adequate strength and ROM to mount motorcycle. Coordination/Communication With Referral Source Treatment Plan/Direct Interventions Electrical Stimulation,Gait Training,Joint Mobilization, Manual Therapy,Neuromuscular Re-ed,Self-Care/Home Management,Therapeutic Exercises Frequency/Duration 1-2x/week for 6-8 weeks suspecting will initially need a couple sessions per week decreasing to 1x/week Patient Will Be Discharged From Therapy Completion of LTG(s),Skills Plateau,Independent w/HEP, Independently Progressing Evaluation Billing Untimed Code Treatment Minutes 25 Complexity Low Certification Information Initial Certification Date 06/02/24 Ending Certification Date 09/01/24 Provider Signature Required Yes Provider Signature Shows Agreement With POC & Medical Necessity Physician NPI Number Write NPI# Here Physician Comment/Change : Physician Signature & Date Requested Please Sign/Date Here
== END 2024-09-02 14:41 | disposition home or self-care (01) ==
PROVIDERS: PCP Family Medicine; Visit Provider Orthopaedic Surgery
DX: M16.11 Unilateral primary osteoarthritis, right hip (principal); Z96.641 Presence of right artificial hip joint; R53.1 Weakness; R52 Pain, unspecified; R26.9 Unspecified abnormalities of gait and mobility; Z51.89 Encounter for other specified aftercare
CPT/HCPCS: 97032; 97110; 97112; 97140; 97161; 97164; 97535